=== PATIENT | male | born 1960 | race Caucasian/White ===

== ENCOUNTER 2021-10-16 10:31 | Outpatient (REF) | payer OTHER, SELFPAY ==
--- NOTE | ~2021-10-16 | XR_ITS ---
EXAMINATION: XR FOOT, BILATERAL CLINICAL INFORMATION: Left great toe pain. COMPARISON: None. TECHNIQUE: 3 views of the right foot and 3 views of the left foot. FINDINGS: 3 views of the right foot demonstrate spurring at the insertion of the plantar aponeuroses in the Achilles. Mild degeneration at the 1st MTP joint. There is no evidence for an acute fracture or dislocation. Alignment is felt to be within normal limits. 3 views of the left foot show more moderate degenerative change involving the 1st MTP joint. There is also spurring at the insertion of the Achilles and plantar aponeuroses in the posterior calcaneus. Alignment is felt to be within normal limits. No acute bony erosion. XR/XR foot RT min 3V IMPRESSION: Degenerative changes as described.
--- NOTE | ~2021-10-16 | XR_ITS ---
EXAMINATION: XR FOOT, BILATERAL CLINICAL INFORMATION: Left great toe pain. COMPARISON: None. TECHNIQUE: 3 views of the right foot and 3 views of the left foot. FINDINGS: 3 views of the right foot demonstrate spurring at the insertion of the plantar aponeuroses in the Achilles. Mild degeneration at the 1st MTP joint. There is no evidence for an acute fracture or dislocation. Alignment is felt to be within normal limits. 3 views of the left foot show more moderate degenerative change involving the 1st MTP joint. There is also spurring at the insertion of the Achilles and plantar aponeuroses in the posterior calcaneus. Alignment is felt to be within normal limits. No acute bony erosion. XR/XR foot LT min 3V IMPRESSION: Degenerative changes as described.
[2021-10-16 11:03] LABS: MANUAL DIFF FLAG NO
[2021-10-16 11:07] LABS: Basophils Percent Auto 0.3 % (0-2); Eosinophils Percent Auto 0.5 % (0-4); Hematocrit 49.6 % (42.0-52.0); Hemoglobin 17.2 g/dl (14.0-18.0); Imm Gran Abs Auto 0.02 X10*3/uL (0.00-0.03); Imm Gran Pct Auto 0.3 % (0.0-0.4); Lymphocytes Absolute Auto 1.4 X10*3/uL (1.2-4.9); Lymphocytes Percent Auto 21.3 % (20-40); Mean Corpuscular HGB Conc 34.7 g/dl (31.0-36.0); Mean Corpuscular Hemoglobin 32.1 pg (27.0-33.0); Mean Corpuscular Volume 92.5 fL (80.0-98.0); Monocytes Absolute Auto 0.6 X10*3/uL (0.1-1.2); Neutrophils Absolute Auto 4.4 x10*3/uL (2.0-8.3); Neutrophils Percent Auto 68.6 % (45-73); Platelet Count 296 X10*3/uL (160-400); Red Blood Count 5.36 X10*6/uL (4.60-5.80); Red Cell Distribution Width 12.2 % (11.0-16.0); White Blood Count 6.4 X10*3/uL (4.8-10.8)
[2021-10-16 11:56] LABS: Alanine Aminotransferase 53 U/L (0-40); Albumin Level 4.4 g/dL (3.5-5.0); Alkaline Phosphatase 84 U/L (39-117); Anion Gap 13 (12-20); Aspartate Amino Transferase 38 U/L (5-37); Bilirubin Total 0.8 mg/dL (0.0-1.0); Blood Urea Nitrogen 20 mg/dL (9-16); Calcium 9.9 mg/dL (8.4-10.2); Carbon Dioxide 25 mmol/L (22-29); Chloride 108 mmol/L (96-108); Cholesterol 129 mg/dL; Estimated Glomerular Filt Rate > 60; Glucose Fasting 102 mg/dL (60-99); HDL Cholesterol 44 mg/dL; LDL Cholesterol Calculated 75 mg/dl; Potassium 4.8 mmol/L (3.3-5.1); Sodium 141 mmol/L (135-145); Total Protein 7.3 g/dL (6.5-8.0); Triglycerides 54 mg/dL
[2021-10-16 16:12] LABS: Appearance Urine CLEAR; Color Urine YELLOW; Glucose Urine UA 100 MG/DL (NEG); Leukocyte Esterase Urine NEG (NEG); Nitrite Urine NEG (NEG); PH 5.5 (5.0-8.0); Specific Gravity - Urine >= 1.030 (1.005-1.025); Urine Blood TRACE (NEG); Urine Ketones NEG (NEG); Urine Protein NEG (NEG-TRACE)
[2021-10-16 16:23] LABS: RBC Urine 0 /HPF (0); WBC Urine 0 /HPF (0-4)
== END 2021-10-16 10:32 | disposition home or self-care (01) ==
LOC: HO.XRAY 10:31
PROVIDERS: PCP Internal Medicine; Visit Provider Internal Medicine
DX: Z00.00 Encounter for general adult medical examination without abnormal findings (principal); Z12.5 Encounter for screening for malignant neoplasm of prostate; M79.675 Pain in left toe(s); M79.671 Pain in right foot
CPT/HCPCS: 36415; 73630; 80053; 80061; 81001; 84153; 85025

== ENCOUNTER → 2021-10-30 13:54 | Outpatient (BNVA) | payer SELFPAY | PROVIDERS: PCP Internal Medicine; Visit Provider Internal Medicine | DX: Z02.79 Encounter for issue of other medical certificate (principal) ==

== ENCOUNTER 2022-06-29 17:53 | Outpatient (REF) | payer OTHER, SELFPAY ==
--- NOTE | ~2022-06-29 | MR_ITS ---
EXAMINATION: MR KNEE WITHOUT CONTRAST, LEFT CLINICAL INFORMATION: Injury, pain COMPARISON: None TECHNIQUE: MRI of the knee without contrast was performed using routine sequences on a high-field scanner. FINDINGS: MENISCI: Medial Meniscus: Degeneration and undersurface tear in the posterior horn. Small caliber of the body, with degeneration and tibial surface tearing. Lateral Meniscus: Intact LIGAMENTS: Cruciate: Intact Collateral: Intact EXTENSOR MECHANISM: Intact ARTICULAR CARTILAGE/BONE: Patellofemoral Compartment: Focus of cartilage fissuring in the median ridge. Cartilage thinning and fissuring in the medial aspect of the trochlea, subchondral edema. Cartilage heterogeneity in the central trochlear. Medial Compartment: Cartilage thinning in the medial aspect of the compartment. Subchondral edema in the medial aspect of the tibia. Lateral Compartment: No significant cartilage loss. JOINT FLUID AND BURSAE: Small effusion. Mild proximal gastrocnemius tendinosis. Popliteus muscle and tendon are intact. MR/MR knee LT wo con IMPRESSION: 1. Tear of the posterior horn and body of the medial meniscus. 2. Mild patellofemoral and medial compartment arthritis. 3. Small effusion. 4. Mild proximal gastrocnemius tendinosis.
== END 2022-06-29 17:54 | disposition home or self-care (01) ==
LOC: HO.MRI 17:53
PROVIDERS: Visit Provider Internal Medicine
DX: M25.562 Pain in left knee (principal)
CPT/HCPCS: 73721

== ENCOUNTER 2022-08-10 | Outpatient (REF) | payer OTHER, SELFPAY ==
--- NOTE | ~2022-08-10 | XR_ITS ---
EXAMINATION: XR KNEES, STANDING AP XR KNEE, LEFT CLINICAL INFORMATION: Knee pain. COMPARISON: MRI left knee 06/29/2022 TECHNIQUE: Standing AP view of both knees is performed. Lateral and axial patella views of the left knee are also performed. FINDINGS: Right: Normal bony mineralization. Borderline narrowing medial compartment. No erosive change or subchondral sclerosis or visible chondrocalcinosis. Left: Normal bony mineralization. There is borderline narrowing medial compartment. No subchondral sclerosis, erosive change, or chondrocalcinosis. No definite effusion. Hoffa's fat pad appears normal. Axial view patella shows no lateralization or tilting. XR/XR knee standing BI IMPRESSION: Right: -Borderline narrowing medial compartment. Left: -Borderline narrowing medial compartment. -No definite effusion. -No lateralization or tilting patella.
--- NOTE | ~2022-08-10 | XR_ITS ---
EXAMINATION: XR KNEES, STANDING AP XR KNEE, LEFT CLINICAL INFORMATION: Knee pain. COMPARISON: MRI left knee 06/29/2022 TECHNIQUE: Standing AP view of both knees is performed. Lateral and axial patella views of the left knee are also performed. FINDINGS: Right: Normal bony mineralization. Borderline narrowing medial compartment. No erosive change or subchondral sclerosis or visible chondrocalcinosis. Left: Normal bony mineralization. There is borderline narrowing medial compartment. No subchondral sclerosis, erosive change, or chondrocalcinosis. No definite effusion. Hoffa's fat pad appears normal. Axial view patella shows no lateralization or tilting. XR/XR knee LT 2V IMPRESSION: Right: -Borderline narrowing medial compartment. Left: -Borderline narrowing medial compartment. -No definite effusion. -No lateralization or tilting patella.
== END 2022-08-10 00:01 ==
LOC: HO.HOSX
PROVIDERS: Visit Provider Physician Assistant
DX: M25.562 Pain in left knee (principal); M25.561 Pain in right knee
CPT/HCPCS: 73560; 73565

== ENCOUNTER 2022-08-10 16:48 | Outpatient (REF) | payer OTHER, SELFPAY ==
--- NOTE | ~2022-08-10 | XR_ITS ---
EXAMINATION: XR CHEST CLINICAL INFORMATION: Cough. COMPARISON: None TECHNIQUE: 2 views of the chest were obtained. FINDINGS: No significant abnormality is noted involving the heart, lungs, mediastinum, bony thorax or soft tissues. XR/XR chest 2V IMPRESSION: Unremarkable chest examination.
== END 2022-08-10 16:49 | disposition home or self-care (01) ==
LOC: HO.XRAY 16:48
PROVIDERS: PCP Internal Medicine; Visit Provider Internal Medicine
DX: R06.02 Shortness of breath (principal); R05.9 Cough, unspecified
CPT/HCPCS: 71046

== ENCOUNTER → 2022-10-21 14:53 | Outpatient (BNVA) | payer SELFPAY | PROVIDERS: PCP Internal Medicine; Visit Provider Physician Assistant Medical | DX: Z02.79 Encounter for issue of other medical certificate (principal) ==

== ENCOUNTER → 2023-04-26 07:51 | Outpatient (REF) | payer OTHER, SELFPAY ==
--- NOTE | 2023-04-26 07:55 | CA_ITS ---
Acquisition Time: 2023-04-26 08:13:11 Total Exercise Time: 00:10:00 Test Indications: R06.09 WARNER Medications: Protocol: DMITRY Max HR: 134 BPM 85% of Pred: 157 BPM Max BP: 148/082 mmHG Max Work Load: 11.7 METS PT EXERCISED ON STD DMITRY PROTOCOL FOR 10 MIN INTO STAGE 4. NO CP OR SOB. OCC PAC'S. NO ISCHEMIC CHANGES. NL BP RESPONSE. CLINICALLY AND ELEC NEG. Referred By: Kristian Oliveira Overread By: BLAISE OLIVEIRA MD
== END ==
LOC: HO.CARD 07:51
PROVIDERS: PCP Internal Medicine; Visit Provider Internal Medicine
DX: R06.09 Other forms of dyspnea (principal)
CPT/HCPCS: 93017

== ENCOUNTER 2023-05-02 21:12 | Emergency (ER) | payer OTHER, SELFPAY ==
--- NOTE | ~2023-05-02 | XR_ITS ---
EXAMINATION: XR CERVICAL SPINE CLINICAL INFORMATION: Painful COMPARISON: None available. TECHNIQUE: 4 views of the cervical spine were obtained. FINDINGS: There is grade 1 anterolisthesis of C4 on C5 which is suspected to be chronic/degenerative in nature as there is multilevel facet arthropathy. Vertebral body heights are maintained. There is disc space narrowing and endplate osteophyte formation of the lower cervical spine. No acute fracture is seen. No significant prevertebral soft tissue swelling. XR/XR cervical spine 3V IMPRESSION: No acute findings identified. Degenerative changes as noted above. Grade 1 anterolisthesis of C4 on C5 suspected to be chronic/degenerative in nature.
--- NOTE | ~2023-05-02 | XR_ITS ---
EXAMINATION: XR SHOULDER, RIGHT CLINICAL INFORMATION: Narayant, jonathan fracture COMPARISON: None available. TECHNIQUE: Four views of the right shoulder. FINDINGS: Glenohumeral alignment is anatomic, with mild to moderate degenerative change noted. No acute fracture is seen. The acromioclavicular joint is intact with moderate degenerative change. XR/XR shoulder RT min 2V IMPRESSION: No acute findings identified. Degenerative changes of the acromioclavicular and glenohumeral joints.
--- NOTE | ~2023-05-02 | XR_ITS ---
EXAMINATION: XR CHEST CLINICAL INFORMATION: Question rib fracture, painful COMPARISON: 08/10/2022 TECHNIQUE: 2 views of the chest were obtained. FINDINGS: The lungs are clear with no focal consolidation. No evidence of pneumothorax, pulmonary edema, or pleural effusions. The cardiomediastinal silhouette is unremarkable. No acute osseous findings. XR/XR chest 2V IMPRESSION: No acute cardiopulmonary findings.
[2023-05-02 21:43] VITALS: BP 144/90; PULSE 66; RESP 18; TEMP 37.2; O2SAT 96; BMI 26.7
--- NOTE | 2023-05-03 01:17 | ED.EXTPRO ---
HPI - Extremity Problem General Chief complaint: Extremity Injury, Upper Stated complaint: Fall Body/neck pain Time Seen by Provider: 05/02/23 23:43 Source: patient Mode of arrival: ambulatory Limitations: no limitations History of Present Illness HPI Narrative: Patient is a 62-year-old male presents emergency department for evaluation after a fall with injury. States he was running with his grandchildren when he tripped resulting in a fall landing on his right side. Denies any head strike or loss of consciousness. When he fell he landed on the right shoulder and the ribs both of which are particularly painful. Reports reproducible chest pain with deep inspiration. Denies any numbness or tingling to the extremities. Denies headache, dizziness, lightheadedness, neck pain, shortness of breath, difficulty breathing, nausea, vomiting. Related Data Home Medications Medication Instructions Recorded Confirmed lisinopril 5 mg tablet 5 mg PO DAILY 08/10/22 Previous Rx's Medication Instructions Recorded cyclobenzaprine 10 mg tablet 10 mg PO TID PRN muscle spasm #14 05/03/23 tabs Allergies Allergy/AdvReac Type Severity Reaction Status Date / Time penicillamine Allergy Unknown pt unsure, Verified 08/09/19 00:00 childhood Penicillins [PCN] AdvReac Unknown UNKNOWN Unverified 05/30/20 14:42 Review of Systems Review of Systems: Yes all other systems are reviewed and are negative PMFSH Past Medical History Attestation statement: The following information was validated with the patient. 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 No acute distress.?Normal affect. Eyes: Pupils equal, round and reactive to light.? ENT: Pharynx normal.?? Neck: Normal inspection.? Neck supple.?? No midline cervical spine tenderness, step-offs, deformities. Tenderness upon palpation of the cervical paraspinal muscles. CVS: Heart sounds normal. Normal heart rate and rhythm.? Pulses normal.?? Respiratory: No respiratory distress.? Lung sounds clear to auscultation bilaterally?? Tenderness upon palpation of the right lateral chest wall, no palpable deformity. Abdomen: Soft and non-tender. Normoactive bowel sounds. Skin: Skin warm and dry.? Normal skin color.? ? Extremities: decreased AROM to the right shoulder, particularly with abduction, and overhead extension. No palpable deformity. Diffuse tenderness upon palpation. Neuro: Moves all extremities spontaneously. Sensation intact bilaterally. CN II-XII intact. No focal neuro deficits. Ambulates with normal steady gait. Medications Administered Discontinued Medications Generic Name Dose Route Start Last Admin Trade Name Freq PRN Reason Stop Dose Admin Cyclobenzaprine HCl 10 mg 05/03/23 01:22 05/03/23 01:46 Cyclobenzaprine Hcl 10 Mg Tablet PO 05/03/23 01:23 10 mg ONCE ONE Administration Medical Decision Making Medical Decision Making [facility] Narrative: patient is a 62-year-old male presents emergency department for evaluation of traumatic right shoulder neck and rib pain as per HPI. At the time my examination he is overall well-appearing. He is in no apparent respiratory distress, speaking clear full sentences, no hypoxia or tachypnea. He does have of tenderness along the right lateral chest wall, no notable deformities. Reviewed XR imaging which reveals no acute fracture, no pneumothorax. Discussed with patient consideration of repeat imaging with primary care provider should pain persist. We reviewed the use of incentive spirometer given rib injury, at this time pain likely secondary to a contusion. XR imaging of the right shoulder is without any acute fracture dislocation, he does have diffuse tenderness in a decreased AROM, consistent with sprain at this time. No midline cervical spine tenderness, step-offs, deformities, no evidence of acute fracture on x-ray, there is however degenerative changes that are noted. Pain is mostly with tenderness upon palpation of the paraspinal muscles, consistent with a muscular strain, for which he received cyclobenzaprine with good relief. He has no focal neurological deficits upon examination, low suspicion for ICH/ SAH. Reviewed worrisome signs and symptoms that would warrant re-evaluation in the emergency department. All questions were answered. Stable for discharge home and outpatient follow-up with his primary care provider. Differential Diagnosis Differential Diagnoses: The differential diagnosis associated with the presentation includes ( as noted above) Radiology Impression Discussion of test interpretation with radiology: I have reviewed the radiologist's reading. Radiologist Impression: XR/XR cervical spine 3V IMPRESSION: No acute findings identified. Degenerative changes as noted above. Grade 1 anterolisthesis of C4 on C5 suspected to be chronic/degenerative in nature. XR/XR chest 2V IMPRESSION: No acute cardiopulmonary findings. XR/XR shoulder RT min 2V IMPRESSION: No acute findings identified. Degenerative changes of the acromioclavicular and glenohumeral joints. Independent Historian Clinical information obtained from an independent historian. History obtained from or confirmed by: Spouse ( present at bedside who confirms history) Prescription Management I considered prescription management with: Pain Medication Discharge Plan Discharge Clinical Impression: Cervical muscle strain, Sprain of right shoulder, Contusion of rib on right side Patient Disposition: Home, Self-Care Instructions: Cervical Strain (ED), Shoulder Sprain (ED), Rib Contusion (ED) Additional Instructions: please be sure to rest over the next few days. Engage in gentle stretching exercises. Use incentive spirometer as instructed. You can take ibuprofen 200 mg, 3 tablets (600mg) every 6-8 hours as needed for pain, in addition to Tylenol 500 mg, 2 tablets (1,000mg) every 4-6 hours as needed for pain, but not to exceed 3 doses daily (3,000mg).? Have sent a prescription for cyclobenzaprine / Flexeril to your pharmacy. This is a muscle relaxer, may make you drowsy. Should not drive, drink alcohol, or work while taking this medication. Please follow-up with your primary care provider as needed for any persistent symptoms. You may return back to emergency department with any new or worsening symptoms or concerns. Prescriptions: New cyclobenzaprine 10 mg tablet 10 mg PO TID PRN (Reason: muscle spasm) Qty: 14 0RF No Action lisinopril 5 mg tablet 5 mg PO DAILY Referrals: Kristian Andrade MD [Primary Care Provider] - Discharge Date/Time: 05/03/23 01:55
[2023-05-03 01:33] VITALS: BP 173/95; PULSE 51; RESP 18; TEMP 36.5; O2SAT 97
[2023-05-03] MEDS: Cyclobenzaprine HCl 10 MG TABLET PO (01:46)
--- NOTE | 2023-05-03 01:52 | PC.NURSE ---
pt assessed at d/c, medicated with prior to d/c, verbalized instructions given the use of the incentive spirometer
== END 2023-05-03 01:55 | disposition home or self-care (01) ==
LOC: HO.ED 23:46
PROVIDERS: Emergency Provider Internal Medicine; PCP Internal Medicine
DX: S13.4XXA Sprain of ligaments of cervical spine, initial encounter (principal); S43.401A Unspecified sprain of right shoulder joint, initial encounter; R07.89 Other chest pain; M54.2 Cervicalgia; W01.10XA Fall on same level from slipping, tripping and stumbling with subsequent striking against unspecified object, initial encounter; Y93.9 Activity, unspecified; Y92.9 Unspecified place or not applicable; Y99.9 Unspecified external cause status
CPT/HCPCS: 71046; 72040; 73030; 99284

== ENCOUNTER 2023-05-11 16:09 | Outpatient (REF) | payer OTHER, SELFPAY ==
--- NOTE | ~2023-05-11 | XR_ITS ---
EXAMINATION: XR RIBS, RIGHT CLINICAL INFORMATION: Status post fall, rib pain. COMPARISON: Chest radiograph 05/02/2023. TECHNIQUE: 3 views of the right ribs were obtained. FINDINGS: Lungs are clear. No consolidation, pneumothorax, or pleural effusion. The cardiomediastinal silhouette and pulmonary vasculature are normal. Osseous structures are unremarkable. Ribs are intact. No fractures are identified. XR/XR ribs RT min 3V w CXR1V IMPRESSION: No acute cardiopulmonary findings. No displaced rib fractures.
== END 2023-05-11 16:10 | disposition home or self-care (01) ==
LOC: HO.XRAY 16:09
PROVIDERS: PCP Internal Medicine; Visit Provider Internal Medicine
DX: R07.81 Pleurodynia (principal); Z91.81 History of falling
CPT/HCPCS: 71101

== ENCOUNTER → 2023-10-19 14:40 | Outpatient (BNVA) | payer SELFPAY | PROVIDERS: PCP Internal Medicine; Visit Provider Physician Assistant Medical | DX: Z02.79 Encounter for issue of other medical certificate (principal) ==

== ENCOUNTER 2024-07-31 13:29 | Outpatient (REF) | payer OTHER, SELFPAY ==
--- NOTE | ~2024-07-31 | XR_ITS ---
EXAMINATION: XR RIGHT SHOULDER CLINICAL INFORMATION: Pain in unspecified shoulder M25.519. COMPARISON: XR Right shoulder 05/02/2023 TECHNIQUE: 3 views of the right shoulder FINDINGS: Mild to moderate osteoarthritis of the acromioclavicular joint unchanged. Mild osteoarthritis of the glenohumeral joint unchanged. Surrounding bone and soft tissues unremarkable. 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 Electronically signed by: Mark Aguilar MD 09/26/2024 09:47 AM [facility]
== END 2024-07-31 13:30 | disposition home or self-care (01) ==
LOC: HO.HOSX 13:29
PROVIDERS: PCP Internal Medicine; Visit Provider Physician Assistant
DX: S46.091A Other injury of muscle(s) and tendon(s) of the rotator cuff of right shoulder, initial encounter (principal)
CPT/HCPCS: 73030; 99212

== ENCOUNTER 2024-07-31 13:29 | Outpatient (AMB) | payer OTHER, SELFPAY ==
--- NOTE | 2024-07-31 13:31 | MHC.OFFVIS ---
Intake Visit Reasons: New Prob- right shoulder pain Intake Note: Randell is a 63 year old right hand dominant male who presents today for a evaluation of his right shoulder pain, 06/01/24 and 07/12/24. Patient reports he was reaching up for a barrel and her elsie a pop in his shoulder. He mentions that he is feeling some soreness and his ROM is limited. Patient states that his pain is worse when he is over doing it at work. Allergies penicillamine Allergy (Unknown, Verified 07/31/24 13:57) pt unsure, childhood Penicillins [PCN] Adverse Reaction (Unknown, Verified 07/31/24 13:57) UNKNOWN HPI HPI New Prob- right shoulder pain: Details: 63-year-old male who presents in the office today for an evaluation of right shoulder pain. I last saw the patient in the office for left knee pain on 08/10/22. While in the office today, the patient reports he was reaching up for a barrel and he experienced a popping sensation in his right shoulder. He mentions experiencing mild soreness and limited ROM. He states aggravating pain when he overuses his right shoulder at work. 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 Abduction to 90 degrees. External rotation to neutral. Able to reach the back pocket. Pain with cross body reach. 3/5 strength with an empty can. Negative drop arm. NVI. Assessment & Plan Assessment & Plan (1) Other injury of muscle(s) and tendon(s) of the rotator cuff of right shoulder, initial encounter: Code(s): S46.091A - Other injury of muscle(s) and tendon(s) of the rotator cuff of right shoulder, initial encounter Category: Medical Plan Mr. Clemens is a 63-year-old male who presents in the office today for an evaluation of right shoulder pain. I last saw the patient in the office for left knee pain on 08/10/22. While in the office today, the patient reports he was reaching up for a barrel and he experienced a popping sensation in his right shoulder. He mentions experiencing mild soreness and limited ROM. He states aggravating pain when he overuses his right shoulder at work. We discussed the role of cortisone injection, physical therapy and MRI imaging. The patient mentions he has had a prior rotator cuff repair on the left shoulder and feels as though his symptoms may be similar. He is reluctant to move forward with a cortisone injection at this time. He would like to further proceed with MRI imaging of the right shoulder in which I am in agreement with today. Therefore, I have placed an order for an MRI of the right shoulder today to further evaluate the integrity of the right shoulder. I have also placed a referral to physical therapy to work on range of motion and strengthening. Follow-up will be after the MRI is obtained, sooner if needed. X-rays of the right shoulder, which were obtained while in the office today and were reviewed by me, Cleo Cook PA-C, revealed: Negative for any acute fracture of dislocation. Orders: Orders XR shoulder RT min 2V Today M25.519 - Pain in unspecified shoulder PT Evaluation and Treatment Today S46.091A - Other injury of muscle(s) and tendon(s) of the rotator cuff of right shoulder, initial encounter Patient Instructions: Scribed by Chana Laird, medical lab specialist, for Cleo Cook PA-C on 07/31/2024 at 2:20 pm EST. Coding Level of Care Code Est Pt Level 4 (56180) Diagnoses Other injury of muscle(s) and tendon(s) of the rotator cuff of right shoulder, initial encounter S46.091A
== END 2024-07-31 14:29 | disposition home or self-care (01) ==
PROVIDERS: PCP Internal Medicine; Visit Provider Physician Assistant
DX: S46.091A Other injury of muscle(s) and tendon(s) of the rotator cuff of right shoulder, initial encounter (principal); Z04.2 Encounter for examination and observation following work accident
CPT/HCPCS: 99214

== ENCOUNTER 2024-08-09 06:25 | Outpatient (REF) | payer OTHER, SELFPAY ==
[2024-08-09 06:51] LABS: MANUAL DIFF FLAG NO
[2024-08-09 07:26] LABS: Appearance Urine Clear; Color Urine Yellow; Glucose Urine UA Negative (Negative); Leukocyte Esterase Urine Negative (Negative); Nitrite Urine Negative (Negative); PH 5.5 (5.0-9.0); Specific Gravity - Urine 1.025 (1.005-1.025); UMIC TRIGGER UA YES; Urine Blood Trace (Negative); Urine Ketones Negative (Negative); Urine Protein Negative (Neg-Trace)
[2024-08-09 07:26] LABS: Basophils Percent Auto 0.3 % (0-2); Eosinophils Absolute Auto 0.1 X10*3/uL (0.0-0.4); Eosinophils Percent Auto 1.3 % (0-4); Hematocrit 48.5 % (42.0-52.0); Hemoglobin 17.3 g/dl (14.0-18.0); Imm Gran Abs Auto 0.02 X10*3/uL (0.00-0.03); Imm Gran Pct Auto 0.3 % (0.0-0.4); Lymphocytes Absolute Auto 1.3 X10*3/uL (1.2-4.9); Lymphocytes Percent Auto 20.8 % (20-40); Mean Corpuscular HGB Conc 35.7 g/dl (31.0-36.0); Mean Corpuscular Hemoglobin 32.1 pg (27.0-33.0); Mean Platelet Volume 9.7 fL (9.4-12.4); Monocytes Absolute Auto 0.5 X10*3/uL (0.1-1.2); Monocytes Percent Auto 8.6 % (2-11); Neutrophils Absolute Auto 4.1 x10*3/uL (2.0-8.3); Neutrophils Percent Auto 68.7 % (45-73); Platelet Count 296 X10*3/uL (160-400); Red Blood Count 5.39 X10*6/uL (4.60-5.80); Red Cell Distribution Width 12.5 % (11.0-16.0)
[2024-08-09 07:32] LABS: Bacteria Urine None Seen (None Seen); Hyaline Casts Urine 0-2 /LPF (0-2); RBC Urine 0-2 /HPF (0-2); Squamous Epithelial Cell Urine 0-2 /HPF (0-2); WBC Urine 0-5 /HPF (0-5)
[2024-08-09 08:05] LABS: Alanine Aminotransferase 48 U/L (0-40); Albumin Level 4.2 g/dL (3.5-5.0); Alkaline Phosphatase 79 U/L (39-117); Anion Gap 12 (12-20); Aspartate Amino Transferase 36 U/L (5-37); Bilirubin Total 0.6 mg/dL (0.0-1.0); Blood Urea Nitrogen 21 mg/dL (9-16); Carbon Dioxide 23 mmol/L (22-29); Chloride 110 mmol/L (96-108); Cholesterol 113 mg/dL (<200); Estimated Glomerular Filt Rate > 60; Glucose Fasting 120 mg/dL (60-99); HDL Cholesterol 37 mg/dL (>40); LDL Cholesterol Calculated 61 mg/dL (<100); Potassium 3.6 mmol/L (3.3-5.1); Sodium 141 mmol/L (135-145); Total Protein 6.9 g/dL (6.5-8.0); Triglycerides 75 mg/dL (<150)
[2024-08-09 08:23] LABS: Prostate Specific Antigen 0.32 ng/mL (<0.05-4.0)
[2024-08-16 16:34] LABS: Testosterone, Free 59.6 pg/mL (35.0-155.0); Testosterone, Total 828 ng/dL (250-1100)
== END 2024-08-09 06:26 | disposition home or self-care (01) ==
LOC: HO.LAB 06:25
PROVIDERS: PCP Internal Medicine; Visit Provider Internal Medicine
DX: I10 Essential (primary) hypertension (principal); Z12.5 Encounter for screening for malignant neoplasm of prostate; N40.0 Benign prostatic hyperplasia without lower urinary tract symptoms; J44.9 Chronic obstructive pulmonary disease, unspecified; K57.92 Diverticulitis of intestine, part unspecified, without perforation or abscess without bleeding
CPT/HCPCS: 36415; 80053; 80061; 81001; 84153; 84402; 84403; 85025

== ENCOUNTER 2024-08-18 17:41 | Outpatient (REF) | payer OTHER, SELFPAY ==
--- NOTE | ~2024-08-18 | MR_ITS ---
EXAMINATION: MR SHOULDER WITHOUT CONTRAST, RIGHT CLINICAL INFORMATION: Constant pain in the right shoulder and right arm after injury. COMPARISON: None available. TECHNIQUE: MRI of the shoulder without contrast was performed on a high-field scanner. FINDINGS: ROTATOR CUFF: An insertional, full-thickness, full-width tear of the supraspinatus tendon and infraspinatus tendon measures 3.6 cm AP with retraction of torn fibers by 2.7 cm to level of the humeral head apex. There is moderate subscapularis tendinosis with undersurface fraying of the more cephalad fibers an underlying subcortical edema signal at the lesser tuberosity. No significant muscle atrophy or fatty replacement. BICEPS: The tendon of the long head is torn and distally retracted. CORACOACROMIAL ARCH: The undersurface of the acromion is curved with no subacromial spur. 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 LABRUM/CAPSULE: A tear of the glenoid labrum propagates from the superior 12 o'clock position posteriorly to the posterior labral equator at the 9 o'clock position. There is a tear of the anteroinferior labrum between the anterior 3 o'clock position and inferior 6 o'clock position. Joint capsule is unremarkable. GLENOHUMERAL JOINT/MARROW: Small marginal osteophytes are evident at the glenoid and humeral head. Partial-thickness cartilage loss is evident at the humeral head anterosuperiorly. Subarticular marrow edema is noted at the lesser tuberosity. No fracture or malalignment. Small glenohumeral joint effusion. Fluid in the subacromial subdeltoid bursa likely arises from the glenohumeral joint and extends through the defect in the rotator cuff. MR/MR shoulder RT wo con IMPRESSION: 1. A 3.6 cm (AP) full-thickness, full-width tear of the supraspinatus and infraspinatus tendons with 2.7 cm of retraction. No muscle atrophy. 2. Moderate subscapularis tendinosis with undersurface fraying. 3. Complete tear of the biceps tendon with distal retraction. 4. 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 5. Mild glenohumeral osteoarthritis with tears of the anteroinferior and posterosuperior glenoid labrum. Electronically signed by: Mack Caraballo MD 08/27/2024 03:30 PM [facility] MERINO
--- OUTSIDE RECORDS SUMMARY | 2024-08-23 11:25 | XMS_ITS ---
Author Organization [facility] Address [address] [place] [address] Care Team Providers Care Motor Vehicle License Clerk Name Role Phone Kristian Andrade MD Primary Care Provider Jacob Page [phone] REASON FOR VISIT sd cx Encounters Encounter Location Date Provider Diagnosis [address] [address] 06/07/2024 Jacob Fermin Plan Of Treatment No Information Progress Notes * Margarette CLEMENSOB:1960 ( 63 yo M)Acc No.[id number]:06/07/2024 Patient:?Randell Clemens :1960???Age:63 Y???Sex:Male Address:[address] [place] [address], [address] * true * Date:? Generated for Javan day/Madisyn/eTransmitting on:?08/23/2024 11:25 AM EST
--- OUTSIDE RECORDS SUMMARY | 2024-08-23 11:25 | XMS_ITS ---
Author Organization [facility] [place] Address [address] [place] [address] Care Team Providers Care Job Printer Apprentice Name Role Phone Kristian Andrade MD Primary Care Provider UnavailJacob Gu Unavailable [phone] Allergies Allergen (clinical drug ingredient) Drug/Non Drug Allergy documented on EMR Reaction Allergy Type Onset Date Status Penicillin Unknown Drug Allergy Active REASON FOR VISIT Heel pain Medications Medication SIG (Take, Route, Fr equency, Duration) Notes Start Date End Date Status Lisinopril 5 MG 1 tablet Orally Once a day for 30 day(s) Active Feldene 20 MG 1 capsule with food Orally Once a day for 30 day(s) 02/27/2022 Not-Taking Social History Tobacco Use: Social History Observation Description Date Details (start date - stop date) Former Smoker NA - NA Tobacco Use/Smoking Question Answer Notes Are you a: former smoker Additional Findings: Tobacco Non-User Current no n-smoker Alcohol Screen Question Answer Notes Did you have a drink containing alcohol in the p ast year? No Points 0 Interpretation Negative Tobacco use other than smoking: Question Answer Notes Are you an other tobacco user? No Problems Problem Type SNOMED Code ICD Code Onset Dates Problem Status W/U Status Risk Notes Problem [id number] Plantar fasciitis of left foot (M72.2) Active confirmed Vital Signs Height 5ft 6.5 in in 05/03/2024 Weight 170 lbs 05/03/2024 BMI 27.02 kg/m2 05/03/2024 Encounters Encounter Location Date [facility] [address] [facility] [address] [place] [address] 05/03/2024 Jacob Fermin Plantar fasciitis of left foot M72.2 Assessments Encounter Date Diagnosis (ICD Code) Assessment Notes Treatment Notes Treatment Clinical Notes Section Notes 05/03/2024 Plantar fasciitis of left foot (ICD-10 - M72.2) Plan Of Treatment Next Appt Details Follow Up: 3-4 Weeks, Reason : Progress Notes * Margarette CLEMENSOB:1960 ( 63 yo M)Acc No.[id number]:05/03/2024 Progress Notes Patient:?Randell Clemens Provider:?Jacob Fermin DPM :1960???Age:63 Y???Sex:Male Kyle e:05/03/2024 Address:[address] [place], [place] [id number] Pcp:Kristian Andrade MD Subjective: * Chief Complaints: * ???Heel pain * HPI: ???Heel pain:?Location:?Proximal plantar aspect of Heel , LEFT.?Course:?States , improved , at approximately 70 %.?Treatments:?rest/alter normal daily activity, ice, heat, stretching , medication ( Advil once in a while, topical aspercream) , pre-fabricated orthoses , change in shoes, massage , AFO-nightsplint (pt was unable to get a response from insurance regarding coverage).? * ROS:?General/Constitutional:?Nausea?denies.?Vomiting?denies.?Hunger Thirst?denies.?Loss appetite?denies.?Chills?denies.?Fatigue?denies.?Fever?denies.?Night Sweats?denies.?Unexplained weight loss?denies.?Unexplained weight gain?denies.?HEENTM:?Dentures?denies.?Dizziness?denies.?Glasses/contacts?admits.?Retinopathy?de nies.?Blurred/double vision?denies.?TMJ?denies.?Discharge/drainage?denies.?Implants?denies.?Sore throat?denies.?Dental implants?denies.?Hard of hearing ?denies.?Difficulty chewing/swallowing/speaking?denies.?Nose bleeds?denies.?Sore mouth?denies.?Respiratory:?On Oxygen?denies.?Pneumonia/pleurisy?denies.?Bronchitis?denies.?Emphysema?denies.?C oughing?denies.?Cough blood?denies.?Shortness of breath?denies.?Wheezing?denies.?Cardiovascular:?Pacemaker?denies.?MVP?denies.?WPW?denies.?CHF?denies.?Heart attack?denies.?Septal defect?denies.?Rapid beat?denies.?Chest pain ?denies.?Atrial Fib.?denies.?Murmur/Palpitations?denies.?Gastrointestinal:?Hemorrhoids?denies.?Stomach/Abdominal pain?denies.?Dark blood stool?denies.?Irritable bowel ?denies.?Constipation?denies.?Diarrhea?denies.?Hematology:?Swelling?denies.?Clots?denies.?Varicose Veins?denies.?Bruising?denies.?Bleeding problem?denies.?Genitourinary:?Blood urine?denies.?Frequent/Painfu/urination/bladder control?denies.?Kidney stones?denies.?Infection (UTI)?denies.?Nephropathy?denies.?sex trans dis (STD)?denies.?Prostate?denies.?Musculoskeletal:?Hammertoes?denies.?Bunions?denies.?Back Pain?denies.?Muscle Cramps/ Resting?denies.?Muscle cramps / walking?denies.?Generalized aches and pains?denies.?Weakness?denies.?Integ.:?Marquis?denies.?Scars?denies.?Corns/calluses?denies.?Ingrown nails?denies.?Painful nails?denies.?Open Sores?denies.?Rashes?denies.?Neurologic:?Difficulty sleeping?denies.?Brain disorder?denies.?Numbness?denies.?Balance trouble?denies.?Confusion?denies.?Fainting/blackouts?denies.?Tingling?denies.?Tr emors?denies.? * Medical History:? * Surgical History:?No Surgica l History documented. * Hospitalization/Major Diagno stic Procedure:?No Hospitalization History. * Family History:?Mother: unkn own.?Father: unknown, Cancer, diagnosed with Unspecified essential hypertension, Other malignant neoplasm of unspecified site.?Spouse: alive.? * Social History:?Tobacco Use:?Tobacco Use/Smoking?Are you a:?former smoker ?Additional Findings: Tobacco Non-User?Current non-smoker ?Tobacco use other than smoking?Are you an other tobacco user??No ???Drugs/Alcohol:?Drugs?Have you used drugs other than those for medical reasons in the past 12 months??No ?Alcohol Screen?Did you have a drink containing alcohol in the past year??No ?Points?0 ?Interpretation?Negative ???Miscellaneous:?Caffeine: yes, 1-2 cups per day. ?Exercise: yes, soccer,baseball,swimming,hiking,skiing,bike riding. ?Marital status: . 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 * Medications:?TakingLisinopri l 5 MG Tablet 1 tablet Orally Once a dayTaking Lisinopril 5 MG Tablet 1 tablet Orally Once a dayNot-Taking/PRNFeldene 20 MG Capsule 1 capsule with food Orally Once a dayMedication List reviewed and reconciled with the patientNot-Taking/PRN Feldene 20 MG Capsule 1 capsule with food Orally Once a dayMedication List reviewed and reconciled with the patient * Allergies:?Penicillinyes[All ergies Verified] Objective: * Vitals:?Ht:5ft 6.5 in, Wt:17 0, BMI:27.02, Shoe size:8, Ht-cm: 168.91 cm, Wt-k.11 kg. * Examination: ???Heel Pain: ?INSPECTION:?CONT, approximately 70% LESS, Pain on Palpation to Plantar Fascia med. and central bands, intrinsic musc., infra-calcaneal bursa, and med calc tubercle , LEFT foot.? Assessment: * Assessment: 1.?Plantar fasciitis of left foot - M72.2, Acute problem, Uncomplicated (3),Response to treatment - Improvement,Unresolved? Plan: * Treatment: * Procedure Codes:? * Preventive Medicine:? ??Counseling:?Discussion:?-13: Office or other outpatient visit for the evaluation and management of an established patient, which required a medically appropriate history and/or examination and LOW level of DECISION MAKING for: 1 STABLE ACUTE UNCOMPLICATED PROBLEM, 2 OR MORE MINOR PROBLEMS, OR 1 STABLE CHRONIC PROBLEM, THAT POSE(S) A LOW RISK FOR MORBIDITY/MORTALITY. The visit on the day of the encounter encompassed interpreting the data and educating the patient as to the nature of their condition, treatment options available according to their individual PMH, meds, allergies, and overall health/living conditions, as well as any potential risks or complications that may occur from a failure to adhere to, and participate in, the recommended course of therapy. The discussion included a complete verbal, and/or written explanation of the examination results, any x-rays taken, the proposed diagnosis, and outline of the treatment plan. A schedule for future care needs was also explained. The patient verbalized an understanding of the instructions at this time and agreed to be an active participant in their treatment. If the patient should think of any questions or concerns after the visit, I have encouraged the patient to call the office.?Heel pain:?Discussed other tx options for the patients condition, Given recent successful results to treatment, the patient wishes to continue with the present plan for their condition.?Orthotics:?Cont Prefabricated orthothes ( Comfort Plus - B ).?P.R.I.C.E.:?The patient was counseled on the cont use of P.R.I.C.E. and NSAIDS (if well tolerated) to aid in the recovery from their painful condition, Recommended Topical analgesics including Aspercream/Biofreeze/Voltaren gel as directed.?Stretching Exercises:?Cont Stretching and deep tissue massage exercises.? * Follow Up:?3-4 Weeks * Images: * Sign off status: Completed true * Provider:?Jacob Fermin DPM Date:?2023 Generated for Javan day/Madisyn/Marion on:?08/23/2024 11:25 AM EST History and Physical Notes * HPI (History of Present Illness) Category Sub-Category Detail Notes Category Not es Heel pain Location: Proximal plantar aspect of H eel , LEFT Course: States , improved , at approximately 70 % Treatments: rest/alter normal da vidal activity, ice, heat, stretching , medication ( Advil once in a while, topical aspercream) , pre-fabricated orthoses , change in shoes, massage , AFO- nightsplint (pt was unable to get a response from insurance regarding coverage) Examination Category Sub-Category Detail Notes Category Not es Heel Pain INSPECTION: CONT, approximat inna 70% LESS, Pain on Palpation to Plantar Fascia med. and central bands, intrinsic musc., infra-calcaneal bursa, and med calc tubercle , LEFT foot
--- OUTSIDE RECORDS SUMMARY | 2024-08-23 11:25 | XMS_ITS | Patient Health Record ---
[facility] [place] Address [address] [place] [address] Care Team Providers Care Pipelayer Name Role Phone Kristian Andrade MD Primary Care Provider Jacob Page Unavailable [phone] Allergies Allergen (clinical drug ingredient) Drug/Non Drug Allergy documented on EMR Reaction Allergy Type Onset Date Status Penicillin Unknown Drug Allergy Active Reason For Referral No Information Medications Medication SIG (Take, Route, Fr equency, [...] Problem Status W/U Status Risk Notes Problem [id number] Plantar fasciitis of left foot (M72.2) Active confirmed Vital Signs Height 5ft 6.5 in in 05/03/2024 Weight 170 lbs 05/03/2024 BMI 27.02 kg/m2 05/03/2024 Encounters Encounter Location Date [facility] [address] [address] 03/27/2024 Jacob Fermin Pain in left foot M79.672 ; Plantar fasciitis of left foot M72.2 ; Calcaneal spur, left foot M77.32 ; Interstitial myositis of left foot M60.172 and Bursitis of left foot M77.52 [facility] [address] [place] [address] 05/03/2024 Jacob Fermin Plantar fasciitis of left foot M72.2 [place] [address] [address] 03/27/2024 Jacob Fermin [address] [address] 06/07/2024 Jacob Fermin Assessments Encounter Date Diagnosis (ICD Code) Assessment Notes Treatment Notes Treatment Clinical Notes Section Notes 03/27/2024 Pain in left foot (ICD-10 - M79.672) 03/27/2024 Plantar fasciitis of left foot (ICD-10 - M72.2) Patient Educated with: HEEL CORD STRETCHES.pdf (HEEL CORD STRETCHES.pdf) Patient Educated with: RICE THERAPY.pdf (RICE THERAPY.pdf) 05/03/2024 Plantar fasciitis of left foot (ICD-10 - M72.2) 03/27/2024 Calcaneal spur, left foot (ICD-10 - M77.32) 03/27/2024 Interstitial myositis of left foot (ICD-10 - M60.172) 03/27/2024 Bursitis of left foot (ICD-10 - M77.52) Plan Of Treatment Pending Test Test Name Order Date X ray : Foot, left 3V 02/27/2022 X ray : Foot, left 3V 03/27/2024 X ray : Foot, right 3V 02/27/2022 Insurance Providers Payer Name Payer Address Payer Phone Subscriber Number Group Number Insured Name Patient Relationship to Insured Coverage Start Date Coverage End Date Blue Benefits [address] [address] [place] [address] [id number] Clemens Randell Self - patient is the insured Medical (General) History Medical History History ICD Code High blood pressure Surgical History Surgery Date(Month/Year)
--- OUTSIDE RECORDS SUMMARY | 2024-08-23 11:25 | XMS_ITS ---
Author Organization [facility] Address [address] [place] [address] Care Team Providers Care Leasing Coordinator Name Role Phone Kristian Andrade MD Primary Care Provider Jacob Page Unavailable [phone] Encounters Encounter Location Date Provider Diagnosis [address] [address] 06/07/2024 Jacob Fermin Plan Of Treatment No Information Progress Notes * Margarette CLEMENSOB:1960 ( 63 yo M)Acc No.[id number]:06/07/2024 Progress Note Patient:Randell TAYLOR Provider:?Jacob Fermin DPM :1960???Age:63 Y???Sex:Male Kyle e:06/07/2024 Address:[address] [place], [place] [phone] Pcp:Kristian Andrade MD Subjective: * Chief Complaints: * ??? * Medical History:? Objective: * Vitals:? Assessment: Plan: * Treatment: * Images: * The named appointment provid er may or may not be the originator of this progress note, and it is not deemed complete until electronically signed by the appointment provider. Sign off status: Pending * Provider:Cruzito Fermin DPM Date:?2023 Generated for Libbyi shay/Fakelly/eTransmitting on:?08/23/2024 11:25 AM EST
== END 2024-08-18 17:42 | disposition home or self-care (01) ==
LOC: HO.MRI 17:41
PROVIDERS: PCP Internal Medicine; Visit Provider Physician Assistant
DX: S46.091A Other injury of muscle(s) and tendon(s) of the rotator cuff of right shoulder, initial encounter (principal)
CPT/HCPCS: 73221

== ENCOUNTER → 2024-10-17 14:30 | Outpatient (BNVA) | payer SELFPAY | PROVIDERS: PCP Internal Medicine; Visit Provider Physician Assistant Medical | DX: Z02.79 Encounter for issue of other medical certificate (principal) ==

== ENCOUNTER 2024-10-26 13:45 | Outpatient (AMB) | payer OTHER, SELFPAY ==
--- OUTSIDE RECORDS SUMMARY | 2024-10-26 13:50 | XMS_ITS ---
Author Organization [facility] Address [address] [place] [address] Care Team Providers Care Packer Dried Beef Name Role Phone Kristian Andrade MD Primary Care Provider Jacob Page Unavailable [phone] Encounters Encounter Location Date Provider Diagnosis [address] [address] 06/07/2024 Jacob Fermin Plan Of Treatment No Information Progress Notes * Margarette CLEMENSOB:1960 ( 63 yo M)Acc No.[id number]:06/07/2024 Progress Note Patient:Randell TAYLOR Provider:?Jacob Fermin DPM :1960???Age:63 Y???Sex:Male Kyle e:06/07/2024 Address:[address] [place], [place] [phone] Pcp:Kristian Andrade MD Subjective: * Chief Complaints: * ??? * Medical History:? Objective: * Vitals:? Assessment: Plan: * Treatment: * Images: * The named appointment provid er may or may not be the originator of this progress note, and it is not deemed complete until electronically signed by the appointment provider. Sign off status: Pending * Provider:Cruzito Fermin DPM Date:?2023 Generated for Libbyi shay/Madisyn/eTransmitting on:?10/26/2024 01:49 PM EST
--- OUTSIDE RECORDS SUMMARY | 2024-10-26 13:50 | XMS_ITS ---
Author Organization [facility] [place] Address [address] [place] [address] Care Team Providers Care Driver Salesman Name Role Phone Kristian Andrade MD Primary Care Provider UnavailJacob Gu Unavailable [phone] Allergies Allergen (clinical drug ingredient) Drug/Non Drug [...] Problem Status W/U Status Risk Notes Problem [id number] Plantar fasciitis of left foot (M72.2) Active confirmed Vital Signs Height 5ft 6.5 in in 05/03/2024 Weight 170 lbs 05/03/2024 BMI 27.02 kg/m2 05/03/2024 Encounters Encounter Location Date [facility] [address] [facility] [address] [place] [phone] 05/03/2024 Jacob Fermin Plantar fasciitis of left foot M72.2 Assessments Encounter Date Diagnosis (ICD Code) Assessment Notes Treatment Notes Treatment Clinical Notes Section Notes 05/03/2024 Plantar fasciitis of left foot (ICD-10 - M72.2) Plan Of Treatment Next Appt Details Follow Up: 3-4 Weeks, Reason : Progress Notes * Margarette CLEMENSOB:1960 ( 63 yo M)Acc No.[id number]:05/03/2024 Progress Notes Patient:?Randell Clemens Provider:?Jacob Fermin DPM :1960???Age:63 Y???Sex:Male Kyle e:05/03/2024 Address:[address] [place], [place] [phone] Pcp:Kristian Andrade MD Subjective: * Chief Complaints: [...] yes, soccer,baseball,swimming,hiking,skiing,bike riding. ?Marital status: . 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 * Medications:?TakingLisinopri l 5 MG Tablet 1 [...] Fermin DPM Date:?2023 Generated for Javan day/Madisyn/Marion on:?10/26/2024 01:50 PM EST History and Physical Notes * HPI [...]
--- OUTSIDE RECORDS SUMMARY | 2024-10-26 13:50 | XMS_ITS ---
Author Organization [facility] Address [address] [place] [address] Care Team Providers Care Reading Intervention Teacher Name Role Phone Kristian Andrade MD Primary Care Provider Jacob Page [phone] REASON FOR VISIT sd cx Encounters Encounter Location Date Provider Diagnosis [address] [address] 06/07/2024 Jacob Fermin Plan Of Treatment No Information Progress Notes * Margarette CLEMENSOB:1960 ( 63 yo M)Acc No.[id number]:06/07/2024 Patient:?Randell Clemens :1960???Age:63 Y???Sex:Male Address:[address] [place] [address], [address] * true * Date:? Generated for Javan dya/Madisyn/eTransmitting on:?10/26/2024 01:50 PM EST
--- OUTSIDE RECORDS SUMMARY | 2024-10-26 13:50 | XMS_ITS | Patient Health Record ---
[facility] [place] Address [address] [place] [address] Care Team Providers Care Position Classifier Name Role Phone Kristian Andrade MD Primary Care Provider Jacob Page Unavailable [phone] Allergies Allergen (clinical drug ingredient) Drug/Non Drug [...] Problem Status W/U Status Risk Notes Problem [id number] Plantar fasciitis of left foot (M72.2) Active confirmed Vital Signs Height 5ft 6.5 in in 05/03/2024 Weight 170 lbs 05/03/2024 BMI 27.02 kg/m2 05/03/2024 Encounters Encounter Location Date [facility] [address] [address] 03/27/2024 Jacob Fermin Pain in left foot M79.672 ; Plantar fasciitis of left foot M72.2 ; Calcaneal spur, left foot M77.32 ; Interstitial myositis of left foot M60.172 and Bursitis of left foot M77.52 [facility] [address] [place] [address] 05/03/2024 Jacob Fermin Plantar fasciitis of left foot M72.2 [place] [id number] [address] 03/27/2024 Jacob Fermin [address] [address] 06/07/2024 Jacob Fermin Assessments Encounter Date Diagnosis [...] Coverage End Date Blue Benefits [address] [address] [place] [address] [id number] Clemens Randell Self - patient is the insured Medical (General) History Medical History History ICD Code High blood pressure Surgical History Surgery Date(Month/Year)
--- NOTE | 2024-10-26 13:51 | A.OFFVIS_ITS ---
Intake Visit Reasons: OV- Right shoulder MRI review Intake Note: Randell is a 63 year old right hand dominant male who presents today for a right shoulder MRI review. Patient reports he was reaching up for a barrel and her elsie a pop in his shoulder. IMPRESSION: 1. A 3.6 cm (AP) full-thickness, full-width tear of the supraspinatus and infraspinatus tendons with 2.7 cm of retraction. No muscle atrophy. 2. Moderate subscapularis tendinosis with undersurface fraying. 3. Complete tear of the biceps tendon with distal retraction. 4. 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 5. Mild glenohumeral osteoarthritis with tears of the anteroinferior and posterosuperior glenoid labrum. Allergies penicillamine Allergy (Unknown, Verified 07/31/24 13:57) pt unsure, childhood Penicillins [PCN] Adverse Reaction (Unknown, Verified 07/31/24 13:57) UNKNOWN HPI HPI OV- Right shoulder MRI review: Details: Randell is a 63 year old right hand dominant male who presents today for a right shoulder MRI review. Patient reports he was reaching up for a barrel and felt a pop in his shoulder. He is managing to work. He reports that this has been present for years. He reports feeling a pop but there was difficulty with overhead work for many years. He compensates by keeping things in front of him. He states he can tolerate the discomfort unless he overdoes it and then he is sore. He had left RTC surgery decades ago and remembers it taking a long time to recover. 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 He has 4/5 strength on the right. Neg drop arm. Neg lift off. ER to 45 deg Results Reviewed Results Reviewed: I personally reviewed the MR images. IMPRESSION: 1. A 3.6 cm (AP) full-thickness, full-width tear of the supraspinatus and infraspinatus tendons with 2.7 cm of retraction. No muscle atrophy. 2. Moderate subscapularis tendinosis with undersurface fraying. 3. Complete tear of the biceps tendon with distal retraction. 4. 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 5. Mild glenohumeral osteoarthritis with tears of the anteroinferior and posterosuperior glenoid labrum. Assessment & Plan Assessment & Plan (1) Rotator cuff tear, right: Code(s): M75.101 - Unspecified rotator cuff tear or rupture of right shoulder, not specified as traumatic Category: Medical Plan: This is a 63 yo active M with a right rotator cuff tear. There may be a portion that is subacute but it appears chronic by history and MRI although there is no atrophy. Surgical intervention would keep him out of his current type of work for at least 6 months and this is something he does not want. I do not think he is a candidate for arthroplasty given his current work demands. He states he will try to work until he is 69. He is functional at the moment and I reviewed the importance of shoulder safe mechanics. If he worsens we can discuss again but, at this time, he is stable and not interested in surgical fixation. Coding Level of Care Code Est Pt Level 4 (07237) Diagnoses Rotator cuff tear, right M75.101
== END 2024-10-26 15:55 | disposition home or self-care (01) ==
PROVIDERS: PCP Internal Medicine; Visit Provider Orthopaedic Surgery
DX: M75.101 Unspecified rotator cuff tear or rupture of right shoulder, not specified as traumatic (principal); Z04.2 Encounter for examination and observation following work accident
CPT/HCPCS: 99214

== ENCOUNTER → 2024-10-26 13:45 | Outpatient (BNVA) | payer OTHER, SELFPAY | PROVIDERS: PCP Internal Medicine; Visit Provider Orthopaedic Surgery | DX: M75.101 Unspecified rotator cuff tear or rupture of right shoulder, not specified as traumatic (principal) | CPT/HCPCS: 99212 ==

== ENCOUNTER 2025-06-04 14:58 | Outpatient (REF) | payer OTHER, SELFPAY ==
[2025-06-04 15:59] LABS: MANUAL DIFF FLAG NO
[2025-06-04 16:28] LABS: Hemoglobin A1C 140.1292 umol/L
[2025-06-04 16:31] LABS: Hematocrit 47.1 % (42.0-52.0); Hemoglobin 16.6 g/dl (14.0-18.0); Imm Gran Abs Auto 0.03 X10*3/uL (0.00-0.03); Imm Gran Pct Auto 0.4 % (0.0-0.4); Lymphocytes Absolute Auto 1.7 X10*3/uL (1.2-4.9); Mean Corpuscular HGB Conc 35.2 g/dl (31.0-36.0); Mean Corpuscular Hemoglobin 32.1 pg (27.0-33.0); Mean Corpuscular Volume 91.1 fL (80.0-98.0); NRBC Abs Auto 0.000 X10*3/uL (0.0-0.012); NRBC Pct Auto 0.0 /100WBC (0.0-0.2); Platelet Count 284 X10*3/uL (160-400); Red Blood Count 5.17 X10*6/uL (4.60-5.80); White Blood Count 8.5 X10*3/uL (4.8-10.8)
[2025-06-04 17:04] LABS: Alanine Aminotransferase 57 U/L (0-40); Albumin Level 4.6 g/dL (3.5-5.0); Alkaline Phosphatase 82 U/L (39-117); Anion Gap 12 (12-20); Aspartate Amino Transferase 45 U/L (5-37); Blood Urea Nitrogen 19 mg/dL (9-16); Calcium 8.9 mg/dL (8.4-10.2); Carbon Dioxide 26 mmol/L (22-29); Chloride 108 mmol/L (96-108); Cholesterol 109 mg/dL (<200); Estimated Glomerular Filt Rate > 60; HDL Cholesterol 38 mg/dL (>40); Potassium 3.7 mmol/L (3.3-5.1); Sodium 142 mmol/L (135-145); Total Protein 7.3 g/dL (6.5-8.0); Triglycerides 80 mg/dL (<150)
[2025-06-05 13:03] LABS: Syphilis Screen Nonreactive (Nonreactive)
[2025-06-05 13:50] LABS: HBS Num1 0.00 mIU/mL (0-7.99); HBc Num1 0.07 S/CO (0.00-0.79); HBsAGNum1 0.59 S/CO (0.00-0.99); HIV Num 1 0.05 S/CO (0.00-0.99); Hepatitis A Antibody IgM 0.49 Index (0-0.79); Hepatitis B Surface Antigen Negative (Negative); ~HepC Num1 13.33 S/CO (0.00-0.79); ~Hepatitis A Antibody IgM Nonreactive (Nonreactive); ~Hepatitis B Surface Antibody NONREACTIVE (Nonreactive); ~Hepatitis C Antibody Reactive (Nonreactive)
[2025-06-11 14:59] LABS: Testosterone, Free 50.2 pg/mL (35.0-155.0)
== END 2025-06-04 14:59 | disposition home or self-care (01) ==
LOC: HO.LAB 14:58
PROVIDERS: PCP Student in an Organized Health Care Education/Training Program; Visit Provider Student in an Organized Health Care Education/Training Program
DX: I10 Essential (primary) hypertension (principal); R53.83 Other fatigue; L40.9 Psoriasis, unspecified; Z87.891 Personal history of nicotine dependence
CPT/HCPCS: 36415; 80053; 80061; 82306; 83036; 84402; 84403; 84443; 85025; 86704; 86706; 86709; 86780; 86803; 87340; 87389; 96127

== ENCOUNTER 2025-06-04 14:58 | Outpatient (AMB) | payer OTHER, SELFPAY ==
--- NOTE | 2025-06-04 15:03 | MHC.PC.OV ---
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 Required: No Accompanied by: Self / Same As Patient Allergies penicillamine Allergy (Unknown, Verified 06/04/25 15:03) pt unsure, childhood Penicillins (PCN) Adverse Reaction (Unknown, Verified 06/04/25 15:03) UNKNOWN Medication List - Last Reconciled 06/04/25 by Sohan Jose MD cholecalciferol (vitamin D3) 25 mcg PO DAILY lisinopril 10 mg PO DAILY 90 days Tobacco use date assessed: 06/04/25 Fall risk assessment: No Falls in past year Last assessed Fall Risk: 06/04/25 Dental Screening Dental Screen Date: 06/04/25 Did you have a dental visit in the last 12 months?: No Did you have a dental problem in the last 6 months where you did not have access to dental care?: No Was dental information given to patient?: Patient has dentist HPI HPI Comments History of Present Illness Details The patient is a 64-year-old male presenting with concerns regarding his hypertension, dyspnea on exertion, and skin rash. The primary issue is Essential Hypertension, managed with current medication. 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 He reports previous blood pressure concerns with the threshold being 148/90 mmHg for his license renewal. He is considering a medication adjustment to maintain optimal levels. Additionally, the patient notes experiencing dyspnea on exertion, particularly when performing physical activities such as hiking, although he denies significant limitations and can manage stairs comfortably. He mentions that strenuous activities occasionally require breaks but does not indicate acute or concerning progression like severe shortness of breath upon minimal exertion. The patient also reports a recurring rash which had manifested a few years ago on his penis, previously treated with topical steroids which resolved the issue temporarily. Currently, the rash has recurred, described as flaky and itchy, suspecting psoriasis given previous dermatological evaluations, with concern about the effect on his overall well-being, including a decreased libido. 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 [facility] Medical History (Updated 06/04/25 @ 15:30 by Sohan Jose MD) Psoriasis Fatigue Personal history of nicotine dependence Hypertension Surgical History (Updated 06/01/25 @ 16:10 by Katelyn Cortez) History of colonoscopy (~02/24/19) Social History (Updated 08/10/22 @ 09:06 by Alfonzo Markham) Housing: House Alcohol intake: never Patient Tobacco Use Status: Former Tobacco user Years Smoked: 35 years-14 years quit e-Cigarette/Vaping Use: Never Used Current occupational status: employed 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 1. Little interest or pleasure in doing things: not at all 2. Feeling down, depressed, or hopeless: not at all 3. Trouble falling or staying asleep, or sleeping too much: not at all 4. Feeling tired or having little energy: not at all 5. Poor appetite or overeating: not at all 6. Feeling bad about yourself - or that you are a failure or have let yourself or your family down: not at all 7. Trouble concentrating on things, such as reading the newspaper or watching television: not at all 8. Moving or speaking so slowly that other people could have noticed. Or the opposite - being so fidgety or restless that you have been moving around a lot more than usual: not at all 9. Thoughts that you would be better off or of hurting yourself in some way: not at all Total score: 0 Depression Screening Interpretation: Negative Depression Screening Done: Yes 52301 - PHQ-9 Billing: Yes Source: Developed by Drs. Neel L. Nalini, Brian Rodríguez and colleagues, with an educational yin from [employer]. Thrive Questionnaire Date Thrive assessed: 06/04/25 I am a: Patient What is your living situation today?: I have a steady place to live Within the past 12 months, did the food you bought not last and you didn't have the money to get more?: Never true Within the past 12 months, did you worry whether your food would run out before you got money to buy more?: Never true Do you have trouble paying for medicines?: No Do you have trouble getting transportation to medical appointments?: No Do you have trouble paying your heating and electricity bill?: No Do you have trouble taking care of your child, family member or friend?: No Do you have trouble with day-to-day activities such as bathing, preparing meals, shopping, managing finances, etc.?: No Are you currently unemployed and looking for a job?: No Are you interested in more education?: No THRIVE Score: 0 AUDIT C Alcohol Use Questionnaire (AUDIT-C) 1. How often do you have a drink containing alcohol?: Never 3. How often do you have six or more drinks on one occasion?: Never Total Score: 0 Score Reviewed/Action Taken: Yes YODIT-7 AMB Questionnaire YODIT-7 Date YODIT - 7 assessed: 06/04/25 Feeling nervous, anxious, or on edge: 0 = Not at all Not being able to stop or control worryin = Not at all Worrying too much about different things: 0 = Not at all Trouble relaxin = Not at all Being so restless that it is hard to sit still: 0 = Not at all Becoming easily annoyed or irritable: 0 = Not at all Feeling afraid as if something awful might happen: 0 = Not at all Total YODIT-7 score (0-4 normal; 5-9 mild; 10-14 moderate; 15-21 severe): 0 Source: Developed by Drs. Neel Gayle, Brian Rodríguez and colleagues, with an educational yin from [employer]. YODIT-7 Assessment Billing YODIT-7 Assessment Tool: YODIT-7 Assessment 06697 Review of Systems Const Details: - General: Denies fatigue, occasional sleep difficulties. - Cardiovascular: Denies chest pain, palpitations. - Respiratory: Reports mild exertional dyspnea. - Gastrointestinal: Denies recent changes in bowel habits; stools were previously dark, now normal. - Genitourinary: Reports rash on penis, decreased libido. - Neurological: Reports occasional headaches, no vision changes. - Dermatological: Reports recurrent rash. All systems reviewed & are unremarkable except as reviewed in HPI and above Physical exam (Primary Care) Vital Signs: Last Vital Signs Temp 98.1 F 06/04/25 15:09 Pulse 74 06/04/25 15:09 Resp 18 06/04/25 15:09 BP 136/90 H 06/04/25 15:09 Pulse Ox 97 06/04/25 15:09 Oxygen Delivery Method Room Air 06/04/25 15:09 BMI result Body Mass Index 26.9 Tobacco/Smoking Status: Tobacco use Status Tobacco use date assessed 06/04/25 06/04/25 15:04 Patient Tobacco Use Status Former Tobacco user 06/04/25 15:11 e-Cigarette/Vaping Use Never Used 06/04/25 15:11 Depression Screening Interpretation: Negative Const Other: General: +Alert and oriented, Well nourished, No acute distress. Eye: Pupils are equal, round and reactive to light, Intact accommodation, Extraocular movements are intact, Normal conjunctiva, Vision unchanged. HENT: Normocephalic, Atraumatic, Tympanic membranes are clear, Normal hearing, Oral mucosa is moist, No pharyngeal erythema, Ear canals patent. Respiratory: Lungs CTA bilaterally, No wheeze, Respirations are non-labored, but patient reports mild shortness of breath with physical exertion. Cardiovascular: Regular rate, Regular rhythm, S1 auscultated, S2 auscultated, No murmur, Good pulses equal in all extremities, Normal peripheral perfusion, No edema. Blood pressure recorded at 136/90. Gastrointestinal: Soft, Non-tender, Non-distended, Normal bowel sounds, No organomegaly. Patient reports occasional dark stools, now resolved. Musculoskeletal: Normal range of motion, Normal strength, No tenderness, No swelling, No deformity, Normal gait. Integumentary: Warm, Dry, [place], Intact. Patient reports a flaky rash on the penis, consistent with psoriasis. Neurologic: Alert, Oriented, Normal sensory, Normal motor function, No focal defects, Cranial Nerves II-XII are grossly intact, Normal deep tendon reflexes. Patient reports occasional headaches. Psychiatric: Cooperative, Appropriate mood & affect, Normal judgment. Patient denies depression but reports anxiety related to sports team performance. Coding Level of Care Code New Pt Level 4 (02108) New Pt Prev Care 40-64y(64275) Diagnoses Hypertension, unspecified type I10 Hypertension type: unspecified Personal history of nicotine dependence Z87.891 Fatigue, unspecified type R53.83 Fatigue type: unspecified Psoriasis L40.9 Additional Codes PHQ-9 - 21853 - PHQ-9 Billing: Yes ([id number]) YODIT-7 Assessment Billing - YODIT-7 Assessment Tool: YODIT-7 Assessment 37887 ([id number]) Assessment & Plan Assessment & Plan (1) Hypertension: Comment: - Doubling of the current antihypertensive dosage from 5 mg to 10 mg. - Recommendation for daily at-home blood pressure monitoring before and after medication administration. - Follow-up appointment in 6 weeks to change medications Code(s): I10 - Essential (primary) hypertension Category: Medical Qualifiers: Hypertension type: unspecified Qualified Code(s): I10 - Essential (primary) hypertension (2) Personal history of nicotine dependence: Comment: (quit ~2010, +fam hx lung ca - dad) - 35 Pack Smoking History Code(s): Z87.891 - Personal history of nicotine dependence Category: Medical (3) Fatigue: Comment: Endorses generalized fatigue. Reports that when he wakes up he does not feel well rested however is able to ambulate significant amount of distances without any discomfort. While it could be a component of sleep apnea he also reports difficulty with erections therefore we will obtain a testosterone level and based on his review of he reports snoring we will obtain a sleep study. Code(s): R53.83 - Other fatigue Category: Medical Qualifiers: Fatigue type: unspecified Qualified Code(s): R53.83 - Other fatigue (4) Psoriasis: Comment: Endorses dry flaking scale around penile region and on exam has sliver patches with well-defined borders peeling. We will prescribe clobetasol 0.5 to be used sparingly currently has improvement in symptoms. Code(s): L40.9 - Psoriasis, unspecified Category: Medical Plan: Health maintenance: - Emphasized reduction in salt intake to aid hypertension management. - Advised to obtain lung cancer screening due to smoking history. - Reminded of the upcoming colonoscopy and prostate exam. Patient was informed and verbally consented to the use of an ambient scribe for clinic note documentation during this visit. 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 I advised on the slight increase in antihypertensive dosage and the need for regular self-monitoring of blood pressures. Regarding his dyspnea, reassurance was provided given that symptoms were mild and not impactful. For the recurrent rash suspected to be psoriasis, I prescribed clobetasol cream and emphasized cautious usage due to the sensitive area. I discussed possible contributing factors to decreased libido and potential links to his skin condition or antihypertensive medications. Screening for past tobacco use impacts was advised with referrals arranged for lung and prostate screenings. He is expected to contact for scheduling further evaluations as needed and return for consultations before critical UX physical tests. Orders: Orders Hemoglobin A1c Today I10 - Essential (primary) hypertension Hepatitis A,B,C Profile Today I10 - Essential (primary) hypertension Vitamin D 25-OH Total Today I10 - Essential (primary) hypertension Testosterone, Free/Total Today R53.83 - Other fatigue Complete Blood Count Auto Diff Today I10 - Essential (primary) hypertension Comprehensive Met. Panel Today I10 - Essential (primary) hypertension HIV Ab/Ag Today I10 - Essential (primary) hypertension Lipid Panel Today I10 - Essential (primary) hypertension TSH reflex Free T4 Today I10 - Essential (primary) hypertension Syphilis Screen Today I10 - Essential (primary) hypertension Referrals Open Access Screening Colonoscopy Referral Z12.11 - Encounter for screening for malignant neoplasm of colon Lung Cancer Screening Referral Z87.891 - Personal history of nicotine dependence Medications: New lisinopril 10 mg PO DAILY 90 tabs 0RF 90 days clobetasol 0.05% 1 appl topical BID 30 grams 0RF 2 weeks Patient Instructions: - Take the increased blood pressure medication dose as prescribed. - Keep a daily log of blood pressure readings. - Use the clobetasol cream for the skin rash twice daily as instructed. - Reduce your salt intake in your diet significantly. - Schedule and attend both upcoming lung cancer screening and prostate exams. - Be mindful of any escalation in breathing difficulty or other severe symptoms. - Follow up in six weeks for reassessment before the DOT physical.
[2025-06-04 15:09] VITALS: BP 136/90; PULSE 74; RESP 18; TEMP 36.7; O2SAT 97; BMI 26.9
== END 2025-06-04 15:30 | disposition home or self-care (01) ==
LOC: HO.HMCHD 14:59
PROVIDERS: PCP Student in an Organized Health Care Education/Training Program; Visit Provider Student in an Organized Health Care Education/Training Program
DX: I10 Essential (primary) hypertension (principal); R53.83 Other fatigue; L40.9 Psoriasis, unspecified; Z87.891 Personal history of nicotine dependence

== ENCOUNTER 2025-06-05 14:24 | Outpatient (REF) | payer OTHER, SELFPAY ==
--- OUTSIDE RECORDS SUMMARY | 2024-06-07 11:30 | XMS_ITS ---
Author Organization [facility] Address [address] [place] [address] Care Team Providers Care Auto Club Travel Counselor Name Role Phone Kristian Andrade MD Primary Care Provider Jacob Page Unavailable [phone] Encounters Encounter [facility] [address] 06/07/2024 Jacob Fermin Plan Of Treatment No Information Progress Notes * Margarette CLEMENSOB:1960 ( 64 yo M)Acc No.[id number]:06/07/2024 Progress Note Patient: Randell BROWNE Provider: Jose Maria Fermin DPM :1960 A ge:63 Y S ex:Male Date:06/07/2024 Address:[address] [place], [place] [id number] Pcp:Kristian Andrade MD Subjective: * Chief Complaints: [...] Date: 06/07/2024 Generated for Libbyi ng/Faarmidag/eTransmitting on: 06/05/2025 05:39 PM EDT
--- OUTSIDE RECORDS SUMMARY | 2025-06-05 17:40 | XMS_ITS | Patient Health Record ---
Author Organization [facility] [place] Address [address] [place] [address] Care Team Providers Care Information Assurance Name Role Phone Kristian Andrade MD Primary Care Provider Jacob Page Unavailable [phone] Allergies Allergen (clinical drug ingredient) Drug/Non Drug Allergy documented on EMR Reaction Allergy Type Onset Date Status Penicillin Unknown Drug Allergy Active Reason For Referral No Information Medications Medication SIG (Take, Route, Fr equency, Duration) Notes Start Date End Date Status Lisinopril 5 MG 1 tablet Orally Once a day; Duration: 30 day(s) Active Feldene 20 MG 1 capsule with food Orally Once a day; Duration: 30 day(s) 02/27/2022 Not-T aking Social History Tobacco Use: Social History Observation [...] Problem Status W/U Status Risk Notes Problem Plantar fasciitis of left foot ([id number] 9101) Plantar fasciitis of left foot (M72.2) Active confirmed [facility]ters En[facility] [address] [facility] Jacob Fermin Plan Of Treatment Pending Test Test Name Order Date X ray : Foot, left 3V 02/27/2022 X ray : Foot, left 3V 03/27/2024 X ray : Foot, right 3V 02/27/2022 Insurance Providers Payer Name Payer Address Payer Phone Subscriber Number Group Number Insured Name Patient Relationship to Insured Coverage Start Date Coverage End Date Blue Benefits [address] [address] [place] [address] [id number] Randell Clemens Self - patient is the insured Medical (General) History Medical History History ICD Code High blood pressure Surgical History Surgery Date(Month/Year)
== END 2025-06-05 14:25 | disposition home or self-care (01) ==
LOC: HO.LAB 14:24
PROVIDERS: Visit Provider Student in an Organized Health Care Education/Training Program
DX: Z13.89 Encounter for screening for other disorder (principal)

== ENCOUNTER 2025-06-07 15:16 | Outpatient (REF) | payer OTHER, SELFPAY ==
--- OUTSIDE RECORDS SUMMARY | 2024-06-07 11:30 | XMS_ITS ---
Author Organization [facility] Address [address] [place] [address] Care Team Providers Care Digital Media Representative Name Role Phone Kristian Andrade MD Primary Care Provider Jacob Page Unavailable [phone] Encounters Encounter [facility] [address] [facility] Jacob Fermin Plan Of Treatment No Information Progress Notes * Margarette CLEMENSOB:1960 ( 64 yo M)Acc No.[id number]:06/07/2024 Progress Note Patient: Randell BROWNE Provider: Jose Maria Fermin DPM :1960 A ge:63 Y S ex:Male Date:06/07/2024 Address:[address] [place], [place] [id number] Pcp:Kristian Andrade MD Subjective: * Chief Complaints: * * Medical History: Objective: * Vitals: Assessment: Plan: * Treatment: * Images: * The named appointment provid er may or may not be the originator of this progress note, and it is not deemed complete until electronically signed by the appointment provider. Sign off status: Pending * Provider: Jose Maria Fermin DPM Date: 06/07/2024 Generated for Libbyi ng/Faarmidag/eTransmitting on: 06/07/2025 07:26 PM EDT
--- OUTSIDE RECORDS SUMMARY | 2025-06-07 19:27 | XMS_ITS | Patient Health Record ---
Author Organization [facility]berts [place] Address [address] [place] [address] Care Team Providers Care Blow Down Operator Name Role Phone Kristian Andrade MD Primary Care Provider Jacob Page Unavailable [phone] Allergies Allergen (clinical drug ingredient) Drug/Non Drug [...] Notes Problem Plantar fasciitis of left foot ([id number] 9101) Plantar fasciitis of left foot (M72.2) Active confirmed Encounters En[facility] [address] [facility] Jacob Fermin Plan Of Treatment Pending Test Test Name Order Date X ray : Foot, left 3V 02/27/2022 X ray : Foot, left 3V 03/27/2024 X ray : Foot, right 3V 02/27/2022 Insurance Providers Payer Name Payer Address Payer Phone Subscriber Number Group Number Insured Name Patient Relationship to Insured Coverage Start Date Coverage End Date Blue Benefits [address] [address] [place] [address] [id number] Randell Clemens Self - patient is the insured Medical (General) History Medical History History ICD Code High blood pressure Surgical History Surgery Date(Month/Year)
[2025-06-08 08:29] LABS: ~HepC Num1 13.08 S/CO (0.00-0.79); ~Hepatitis C Antibody Reactive (Nonreactive)
[2025-06-08 12:54] LABS: HCV Log PCR 6.12 Log IU/mL (NOT DETECTED); HepC Viral Load 1320000 IU/mL (NOT DETECTED)
== END 2025-06-07 15:17 | disposition home or self-care (01) ==
LOC: HO.LAB 15:16
PROVIDERS: PCP Student in an Organized Health Care Education/Training Program; Visit Provider Student in an Organized Health Care Education/Training Program
DX: Z11.59 Encounter for screening for other viral diseases (principal); R76.8 Other specified abnormal immunological findings in serum
CPT/HCPCS: 36415; 86803; 87522

== ENCOUNTER 2025-07-26 14:05 | Outpatient (AMB) | payer OTHER, SELFPAY ==
--- OUTSIDE RECORDS SUMMARY | 2024-06-07 10:30 | XMS_ITS ---
Author Organization [facility] Address [address] [place] [address] Care Team Providers Care Support Services Specialist Name Role Phone Kristian Andrade MD Primary Care Provider Jacob Page Unavailable [phone] Encounters Encounter [facility] Date [facility] [address] [facility] Jacob Fermin Plan Of Treatment No Information Progress Notes * Margarette CLEMENSOB:1960 ( 64 yo M)Acc No.[id number]:06/07/2024 Progress Note Patient: Randell BROWNE Provider: Jose Maria Fermin DPM :1960 A ge:63 Y S ex:Male Date:06/07/2024 Address:[address] [place], [place] [id number] Pcp:Kristian Andrade MD Subjective: * Chief Complaints: * * Medical History: Objective: * Vitals: Assessment: Plan: * Treatment: * Images: * The named appointment provid er may or may not be the originator of this progress note, and it is not deemed complete until electronically signed by the appointment provider. Sign off status: Pending * Provider: Jose Maria Fermin DPM Date: 0 06/07/2024 Generated for Javan day/Madisyn/eTransmitting on: 09/25/2024 05:26 PM EST
--- NOTE | 2025-07-26 14:04 | A.OFFPC_ITS ---
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 He has been non-adherent with his new prescription for lisinopril 10 mg, instead opting to finish his previous lisinopril 5 mg prescription, and his blood pressure remains high and uncontrolled. Recent blood work was positive for hepatitis C, which is the likely cause of his elevated liver tests. He has an appointment scheduled for September 15 to address treatment for this condition. Other lab results were favorable, with an HbA1c of 5.1 and an LDL of 55. The patient reports a slight improvement in his shortness of breath. He also notes recent lifestyle changes, including going to bed earlier at 10 PM and discontinuing consumption of chocolate and soda after 7 PM, which has resulted in him feeling more refreshed in the morning and less fatigued at midday. The patient has a family history of hemochromatosis, as his brother has the condition and his daughter and one of his sons are carriers. He is concerned that he may also be a carrier. Medical History: - Hypertension - Hepatitis C - Dyspnea Medications: - Lisinopril 5 mg for hypertension - Vitamin D 50,000 IU supplements Family History: - Hemochromatosis: Brother is affected; daughter and a son are carriers. Diagnostic Results: - HbA1c: 5.1% - Liver function tests: Elevated - Hepatitis C antibody: Positive - Vitamin D level: Normal - LDL cholesterol: 55 mg/dL - Total cholesterol: Well-controlled Social History: - Diet: Reports he has stopped eating ch ocolate and drinking soda after 7 PM. - Sleep: Reports improved sleep habits, going to bed at 10 PM instead of 11:15 PM. - Exercise: Reports keeping active and w orking out. 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 Neel Gayle, Brissa Rae, Brian Cabrera and colleagues, with an educational yin from [employer] Review of Systems Narrative - Constitutional: Reports feeling more refreshed and less fatigued during the day. - Cardiovascular: Denies chest pain. - Respiratory: Reports slight improvement in dyspnea. - Gastrointestinal: Denies nausea or vomiting; reports normal eating, drinking, and bowel function. All systems reviewed & are unremarkable except as reviewed in HPI and above Physical exam (Primary Care) Vital Signs: Last Vital Signs Temp 98.5 F 07/26/25 14:10 Pulse 69 07/26/25 14:10 Resp 18 07/26/25 14:10 BP 160/80 H 07/26/25 14:10 Pulse Ox 97 07/26/25 14:10 Oxygen Delivery Method Room Air 07/26/25 14:10 Care Plan Goal for BP management: Uncontrolled due to patient mediaction non- adherence Next steps: Advised using medications prescribed Tobacco/Smoking Status: Tobacco use Status Tobacco use date assessed 06/04/25 07/26/25 14:04 Patient Tobacco Use Status Former Tobacco user 07/26/25 14:04 e-Cigarette/Vaping Use Never Used 07/26/25 14:04 Thrive Assessment: Date of Thrive Assessment Date Thrive assessed 06/04/25 07/26/25 14:04 Narrative General: Alert and oriented, Well nourished, No acute distress. Eye: Pupils are equal, round and reactive to light, Intact accommodation, Extraocular movements are intact, Normal conjunctiva, Vision unchanged. HENT: Normocephalic, Atraumatic, Tympanic membranes are clear, Normal hearing, Oral mucosa is moist, No pharyngeal erythema, Ear canals patent. Respiratory: Lungs CTA bilaterally, No wheeze, Respirations are non-labored, Shortness of breath slightly improved. Cardiovascular: Regular rate, Regular rhythm, S1 auscultated, S2 auscultated, No murmur, Good pulses equal in all extremities, Normal peripheral perfusion, No edema. Gastrointestinal: Soft, Non-tender, Non-distended, Normal bowel sounds, No organomegaly, No pain on palpation. Musculoskeletal: Normal range of motion, Normal strength, No tenderness, No swelling, No deformity, Normal gait. Integumentary: Warm, Dry, [place], Intact. Neurologic: Alert, Oriented, Normal sensory, Normal motor function, No focal defects, Cranial Nerves II-XII are grossly intact, Normal deep tendon reflexes. Psychiatric: Cooperative, Appropriate mood & affect, Normal judgment. Coding Level of Care Code Est Pt Level 4 (79210) Complex EM visit Add On G2211 Diagnoses Hypertension, unspecified type I10 Hypertension type: unspecified Hepatitis C virus infection without hepatic coma, unspecified chronicity B19.20 Viral hepatitis chronicity: unspecified Hepatic coma status: without hepatic coma Hemochromatosis carrier Z14.8 Psoriasis L40.9 Fatigue, unspecified type R53.83 Fatigue type: unspecified Assessment & Plan Assessment & Plan (1) Hypertension: Comment: - The patient has been non-adherent with lisinopril 10 mg, continuing his 5 mg dose instead, resulting in persistently high blood pressure. - He was instructed to begin taking lisinopril 10 mg tonight. - He will monitor his blood pressure at home and follow up in four weeks. Code(s): I10 - Essential (primary) hypertension Category: Medical Qualifiers: Hypertension type: unspecified Qualified Code(s): I10 - Essential (primary) hypertension (2) Hepatitis C: Comment: - The patient tested positive on recent labs, which is the likely cause of his elevated liver enzymes. - He has a specialist appointment scheduled for September 15 to discuss treatment, and we will await their recommendations. Code(s): B19.20 - Unspecified viral hepatitis C without hepatic coma Category: Medical Qualifiers: Viral hepatitis chronicity: unspecified Hepatic coma status: without hepatic coma Qualified Code(s): B19.20 - Unspecified viral hepatitis C without hepatic coma (3) Hemochromatosis carrier: Comment: Concern for Hemochromatosis - The patient has a significant family history of hemochromatosis. - Although he may be a carrier, his current blood counts are normal. - An iron profile will be checked during his next physical in May to assess further. Code(s): Z14.8 - Genetic carrier of other disease Category: Medical (4) Psoriasis: Comment: - Reports improvement in scaling with the help of the cream - Advised continued use PRN Code(s): L40.9 - Psoriasis, unspecified Category: Medical (5) Fatigue: Comment: - The patient's shortness of breath has slightly improved. - This may be related to his recent dietary changes or uncontrolled hypertension. - It is expected to improve further with better blood pressure control. - He is encouraged to continue his active and healthy lifestyle. Code(s): R53.83 - Other fatigue Category: Medical Qualifiers: Fatigue type: unspecified Qualified Code(s): R53.83 - Other fatigue Plan: Health Maintenance: - Continue taking vitamin D supplements. - Encouraged to continue improved sleep habits and dietary modifications (avoiding late-night sweets and soda). - Advised to remain physically active. - Plan to check an iron profile in May during his annual physical. Patient was informed and verbally consented to the use of an ambient scribe for clinic note documentation during this visit. Vital signs reviewed. Comprehensive history, review of systems, and physical exam completed. Medications, allergies, and problem list reviewed and updated. Counseling provided on nutrition, regular exercise, sleep hygiene, and moderation of alcohol use. Discussed age-appropriate screenings (mammogram, colonoscopy, Pap, bone density) and immunizations (flu, COVID, shingles, Tdap). Screened for depression, fall risk, and home safety; no current concerns. Discussed stress management, dental and vision care, and importance of ongoing preventive follow-up. Routine labs ordered for metabolic and lipid screening. Patient educated on healthy lifestyle and agrees with the plan. Plan I discussed with the patient the importance of starting the lisinopril 10 mg dose for his uncontrolled hypertension, explaining that I cannot assess his response to the proper dosage until he begins taking it. We reviewed his recent lab results, highlighting the excellent A1c and cholesterol levels but also the positive test for hepatitis C, which is the likely cause of his elevated liver tests. I acknowledged his upcoming specialist appointment for hepatitis C on September 15 and we agreed to await their treatment plan. I also addressed his concerns regarding his family history of hemochromatosis. I explained that while he could be a carrier, we would defer genetic testing due to cost and instead check an iron profile with his physical in May to avoid an unnecessary blood draw now. I advised him to monitor his blood pressure at home and we will follow up in four weeks. Medications: New sildenafil (Viagra) administer 30 minutes to 4 hours before activity 25 mg PO DAILY PRN 10 tabs 0RF sexual activity Patient Instructions: - Start taking the lisinopril 10 mg prescription tonight. - Continue to take your vitamin D supplement as you have been. - Check your blood pressure regularly at home. - Keep up with your healthy diet, improved sleep schedule, and physical a ctivity. - Make sure to attend your specialist appointment on September 15 to discuss treatment for Hepatitis C. - Return for a follow-up visit in four weeks.
[2025-07-26 14:10] VITALS: BP 160/80; PULSE 69; RESP 18; TEMP 36.9; O2SAT 97
--- OUTSIDE RECORDS SUMMARY | 2025-07-26 17:27 | XMS_ITS | Patient Health Record ---
[facility] Address [address] [place] [address] Care Team Providers Care Mold Capper Name Role Phone Kristian Andrade MD Primary Care Provider Jacob Page Unavailable [phone] Allergies Allergen (clinical drug ingredient) Drug/Non Drug [...] Notes Problem Plantar fasciitis of left foot ([id number]) Plantar fasciitis of left foot (M72.2) Active confirmed Plan Of Treatment Pending Test Test Name Order Date X ray : Foot, left 3V 02/27/2022 X ray : Foot, left 3V 03/27/2024 X ray : Foot, right 3V 02/27/2022 Insurance Providers Payer Name Payer Address Payer Phone Subscriber Number Group Number Insured Name Patient Relationship to Insured Coverage Start Date Coverage End Date Blue Benefits [address] [address] [place] [address] [id number] Randell Clemens Self - patient is the insured Medical (General) History Medical History History ICD Code High blood pressure Surgical History Surgery Date(Month/Year)
== END 2025-07-26 14:31 | disposition home or self-care (01) ==
LOC: HO.HMCHD 14:05
PROVIDERS: PCP Student in an Organized Health Care Education/Training Program; Visit Provider Student in an Organized Health Care Education/Training Program
DX: I10 Essential (primary) hypertension (principal); B19.20 Unspecified viral hepatitis C without hepatic coma; Z14.8 Genetic carrier of other disease; L40.9 Psoriasis, unspecified; R53.83 Other fatigue

== ENCOUNTER 2025-08-23 08:12 | Outpatient (AMB) | payer OTHER, SELFPAY ==
--- NOTE | 2025-08-23 08:24 | A.OFFPC_ITS ---
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 Accompanied by: Self / Same As Patient Allergies penicillamine Allergy (Unknown, Verified 08/23/25 08:24) pt unsure, childhood Penicillins (PCN) Adverse Reaction (Unknown, Verified 08/23/25 08:24) UNKNOWN Medication List - Last Reconciled 08/23/25 by Sohan Jose MD cholecalciferol (vitamin D3) 50 mcg PO DAILY clobetasol 0.05% 1 appl topical BID PRN lisinopril 10 mg PO DAILY 90 days sildenafil (Viagra) 25 mg PO DAILY PRN Tobacco use date assessed: 06/04/25 Fall risk assessment: No Falls in past year Last assessed Fall Risk: 08/23/25 Dental Screening Dental Screen Date: 06/04/25 HPI HPI Comments History of Present Illness Details History of Present Illness The patient is a 64 year old male presenting for follow-up for management of chronic conditions including hypertension, psoriasis, and hepatitis C. He reports he is now compliant with his medications. Regarding his hypertension, his last blood pressure reading was 160/80 mmHg. Since starting lisinopril 10 mg, his blood pressure has improved to 144/86 mmHg. He reports that he has not been checking his blood pressures at home. For his psoriasis, he uses clotrimazole as needed for breakouts and has refills available. For his hepatitis C, he was found to have a high viral load of approximately 1.3 million. He was scheduled to see an infectious disease specialist on September 13 [address] has instead [address] Dr[address] Tamayo on September 10 for this. He has a history of lung disease and is scheduled for a scan and a follow-up appointment for this condition. He reports feeling well overall and has made dietary changes by cutting back on nighttime snacks. He has a history of working out in his garage but stopped around age 61 and describes himself as having gotten lazy. Medical History: - Hypertension - Psoriasis - Hepatitis C, with a viral load of appr oximately 1.3 million - Lung disease Medications: - Lisinopril 10 mg for hypertension - Clotrimazole for psoriasis Family History: - Mother is alive at age 94. Diagnostic Results: - Vitals: Blood pressure 144/86 mmHg, co mpared to 160/80 mmHg previously. - Labs: Hepatitis C viral load was high at approximately 1.3 million. Social History - Diet: Reports cutting back on nighttim e snacks and eating more at dinner. - Exercise: He used to work out in his [email or web address] but stopped around age 61. - Family: Lives with his and will agnieszka e hosting his mother and brothers for [employer]. Health Maintenance - Diet: The patient has reduced his nigh ttime snacking and is eating more at dinner. - Weight Management: Discussed the goal of losing 20 pounds to help manage his blood pressure. - Exercise: Advised to resume working ou t, as he has been inactive since age 61. Patient was informed and verbally consented to the use of an ambient scribe for clinic note documentation during this visit. Vital signs reviewed. Comprehensive history, review of systems, and physical exam completed. Medications, allergies, and problem list reviewed and updated. Counseling provided on nutrition, regular exercise, sleep hygiene, and moderation of alcohol use. Discussed age-appropriate screenings (mammogram, colonoscopy, Pap, bone density) and immunizations (flu, COVID, shingles, Tdap). Screened for depression, fall risk, and home safety; no current concerns. Discussed stress management, dental and vision care, and importance of ongoing preventive follow-up. Routine labs ordered for metabolic and lipid screening. Patient educated on healthy lifestyle and agrees with the plan. 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 Neel Gayle, Brissa Rae, Brian Cabrera and colleagues, with an educational yin from [employer]. Review of Systems Narrative Review of Systems - General: Reports feeling well overall. - Neurological: Denies lightheadedness. - Integumentary: Reports his psoriasis is doing well. All systems reviewed & are unremarkable except as reviewed in HPI and above Physical exam (Primary Care) Vital Signs: Last Vital Signs Temp 97.6 F 08/23/25 08:27 Pulse 64 08/23/25 08:27 Resp 18 08/23/25 08:27 BP 144/86 H 08/23/25 08:27 Pulse Ox 94 08/23/25 08:27 Oxygen Delivery Method Room Air 08/23/25 08:27 BMI result Body Mass Index 27.3 Tobacco/Smoking Status: Tobacco use Status Tobacco use date assessed 06/04/25 08/23/25 08:29 Patient Tobacco Use Status Former Tobacco user 08/23/25 08:29 e-Cigarette/Vaping Use Never Used 08/23/25 08:29 Thrive Assessment: Date of Thrive Assessment Date Thrive assessed 06/04/25 08/23/25 08:29 Narrative Physical Exam General: Alert and oriented, Well nourished, No acute distress. Eye: Pupils are equal, round and reactive to light, Intact accommodation, Extraocular movements are intact, Normal conjunctiva, Vision unchanged. HENT: Normocephalic, Atraumatic, Tympanic membranes are clear, Normal hearing, Oral mucosa is moist, No pharyngeal erythema, Ear canals patent. Respiratory: Lungs CTA bilaterally, No wheeze, Respirations are non-labored. Cardiovascular: Regular rate, Regular rhythm, S1 auscultated, S2 auscultated, No murmur, Good pulses equal in all extremities, Normal peripheral perfusion, No edema. Gastrointestinal: Soft, Non-tender, Non-distended, Normal bowel sounds, No organomegaly. Musculoskeletal: Normal range of motion, Normal strength, No tenderness, No swelling, No deformity, Normal gait. Integumentary: Warm, Dry, [place], Intact. Neurologic: Alert, Oriented, Normal sensory, Normal motor function, No focal defects, Cranial Nerves II-XII are grossly intact, Normal deep tendon reflexes. Psychiatric: Cooperative, Appropriate mood & affect, Normal judgment. Coding Level of Care Code Est Pt Level 4 (38783) Add On Problem Visit Only Diagnoses Hypertension, unspecified type I10 Hypertension type: unspecified Psoriasis L40.9 Hepatitis C antibody detected R76.8 Personal history of nicotine dependence Z87.891 Hemochromatosis carrier Z14.8 Assessment & Plan Assessment & Plan (1) Hypertension: Comment: - The patient's blood pressure has improved from 160/80 mmHg to 144/86 mmHg on lisinopril 10 mg but remains above the goal. - The dose will be increased to 20 mg daily by taking two 10 mg tablets. - The patient was instructed to monitor for lightheadedness and, if it occurs, to reduce the dose to 15 mg daily by taking one and a half tablets. - The goal is to achieve better blood pressure control. Code(s): I10 - Essential (primary) hypertension Category: Medical Qualifiers: Hypertension type: unspecified Qualified Code(s): I10 - Essential (primary) hypertension (2) Psoriasis: Comment: - The condition is well-managed with as-needed clotrimazole. - The patient has available refills. Code(s): L40.9 - Psoriasis, unspecified Category: Medical (3) Hepatitis C antibody detected: Comment: - The patient has a positive diagnosis with a high viral load of about 1.3 million. - He has established care with Dr. Tamayo for management. Code(s): R76.8 - Other specified abnormal immunological findings in serum Category: Medical (4) Personal history of nicotine dependence: Comment: (quit ~2010, +fam hx lung ca - dad) - 35 Pack Smoking History - The patient is scheduled for a scan and follow-up appointment. Code(s): Z87.891 - Personal history of nicotine dependence Category: Medical (5) Hemochromatosis carrier: Comment: - Concern for Hemochromatosis - The patient has a significant family history of hemochromatosis. - Although he may be a carrier, his current blood counts are normal. - An iron profile will be checked during his next physical in May to assess further. Code(s): Z14.8 - Genetic carrier of other disease Category: Medical Plan: Health Maintenance: - Diet: The patient has reduced his nighttime snacking and is eating more at dinner. - Weight Management: Discussed the goal of losing 20 pounds to help manage his blood pressure. - Exercise: Advised to resume working out, as he has been inactive since age 61. Patient was informed and verbally consented to the use of an ambient scribe for clinic note documentation during this visit. Plan I discussed with the patient that his blood pressure has improved on lisinopril 10 mg but is still higher than our goal. We agreed to increase his lisinopril dose to 20 mg daily, and I provided instructions to reduce the dose to 15 mg if he experiences lightheadedness. I educated him on the importance of weight loss and exercise for blood pressure control and encouraged him to lose 20 pounds. We reviewed his hepatitis C diagnosis and high viral load, and I confirmed that his follow-up with Dr. Tamayo is appropriate for ongoing management. I noted his upcoming appointments for his lung condition. We scheduled a follow-up visit in six months to re-evaluate his blood pressure and overall status. Medications: New lisinopril 20 mg PO DAILY 90 tabs 1RF Discontinued lisinopril Discontinued Reason: Doctor's Order 10 mg PO DAILY 90 days 90 tabs 0RF Patient Instructions: - Increase your lisinopril dose by taking two of your 10 mg pills each day for a total of 20 mg. - If you feel lightheaded, reduce your dose to 15 mg daily. You can do this by taking one full 10 mg pill and one-half of another 10 mg pill. - Continue to use your clotrimazole cream for psoriasis as needed. You have refills available. - Keep your appointment with Dr. Tamayo for your hepatitis C. Let him know that your viral load was high, around 1.3 million. - Go to your scan and follow-up appointment for your lung condition tomorrow. - Try to lose about 20 pounds and start exercising again to help lower your blood pressure. - Schedule a follow-up appointment to see me in six months.
[2025-08-23 08:27] VITALS: BP 144/86; PULSE 64; RESP 18; TEMP 36.4; O2SAT 94; BMI 27.3
== END 2025-08-23 08:37 | disposition home or self-care (01) ==
LOC: HO.HMCHD 08:12
PROVIDERS: PCP Student in an Organized Health Care Education/Training Program; Visit Provider Student in an Organized Health Care Education/Training Program
DX: I10 Essential (primary) hypertension (principal); L40.9 Psoriasis, unspecified; R76.89 Other specified abnormal immunological findings in serum; Z87.891 Personal history of nicotine dependence; Z14.8 Genetic carrier of other disease

== ENCOUNTER 2025-08-24 07:16 | Outpatient (AMB) | payer OTHER, SELFPAY ==
--- OUTSIDE RECORDS SUMMARY | 2024-06-07 10:30 | XMS_ITS ---
Author Organization [facility] Address [address] [place] [address] Care Team Providers Care Science Teacher Name Role Phone Kristian Andrade MD Primary Care Provider Jacob Page Unavailable [phone] Encounters Encounter Location Date [facility] [address] [facility]/07/2024 Jacob Fermin Plan Of Treatment No Information Progress Notes * Margarette CLEMENSOB:1960 ( 64 yo M)Acc No.[id number]:06/07/2024 Progress Note Patient: Randell BROWNE Provider: Jose Maria Fermin DPM :1960 A ge:63 Y S ex:Male Date:06/07/2024 Address:[address] [place], [place] [id number] Pcp:Kristian Andrade MD Subjective: * Chief Complaints: [...] DPM Date: 0 06/07/2024 Generated for Javan day/Fakelly/eTransmitting on: 1 10/25/2024 07:18 AM EST
--- NOTE | 2025-08-23 15:50 | A.OFFVIS_ITS ---
Intake Visit Reasons: Former Smoker Allergies penicillamine Allergy (Unknown, Verified 08/23/25 08:24) pt unsure, childhood Penicillins (PCN) Adverse Reaction (Unknown, Verified 08/23/25 08:24) UNKNOWN HPI HPI Former Smoker: Details: Initial telehealth visit for this 64 smoker with a 35PYH. Patient started smoking at age 14 for 37 years at 1ppd. He quit 13 years ago in 2011 . Denies marijuana use. Denies second hand smoke exposure. Denies exposure to chemicals or substances like asbestos. . History family history of lung cancer. Father at 75 Denies personal history of cancers. Denies chest CT in last year. . Denies recent travel outside the [place]. Denies recent respiratory illness or recent hospitalization for respiratory issues. History testing positive for COVID. Admits receiving COVID Vaccine.x3. . Denies fever, chills, new/worsening cough, hemoptysis, hoarseness or dysphagia. Denies significant chest pain, significant dyspnea or unintentional weight loss. Patient Lung Cancer Screening Questionnaire reviewed with patient by provider. . Shared Decision Making Completed. Patient meets criteria. Discussed in detail with patient, the risk vs benefit of LDCT screening. Patient consents to proceed with scan. Discussed smoking cessation. [facility] Medical History (Updated 08/23/25 @ 16:03 by Heather Horta PA-C) Hemochromatosis carrier Hepatitis C Hepatitis C antibody detected Psoriasis Fatigue Personal history of nicotine dependence Hypertension Surgical History (Updated 06/01/25 @ 16:10 by Katelyn Cortez) History of colonoscopy (~02/24/19) Social History (Updated 08/23/25 @ 16:04 by Heather Horta PA-C) Housing: House Alcohol intake: never Patient Tobacco Use Status: Former Tobacco user Years Smoked: (onset 14yo, 1ppd x 37yrs, 35pyh - quit 2011) e-Cigarette/Vaping Use: Never Used Current occupational status: employed 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 [employer] / right 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891 - Personal history of nicotine dependence Category: Medical Plan: - SDM visit completed today via phone. LDCT scheduled for 08/24/25. - Patient meets criteria for LDCT for lung cancer screening purposes and is asymptomatic. - Smoking cessation counseling offered. Patients can always call [phone]. - Will arrange for a LDCT scan of the chest for screening purposes at [facility]. - Risks, benefits, and alternatives were discussed in detail and the patient agrees to proceed. - Risks discussed include but are not limited to: radiation exposure, anxiety during testing and while awaiting results, false negatives, false positives and possibility of additional intervention such as further imaging or surgical procedures for benign disease. - Benefits are obviously detection of lung cancer at an early stage which can lead to improved outcomes. - Discussed the importance of screening program compliance with adherence to yearly LDCT scan as scheduled - or sooner interval scans for personalized screening regimen. - Discussed follow up plan. Our office will send a letter discussing results and if needed set up phone call and office visit based on CT findings. - Patient educated on results categorization and the management decisions for suspicious findings potentially found on the screening LDCT scan. Any patient with a Lung RADS score of 3 or 4 will be reviewed by a multidisciplinary team at [facility] to form a plan of action in regards to scan findings. - If further work up is warranted for a suspicious lung finding this will be followed by the Lung Cancer Screening program in conjunction with the Thoracic Surgery Department at [facility]. - A copy of the office note and LDCT will be sent to the patient's PCP - as well as documentation on any associated further plans of care. - Incidental findings on LDCT are the PCP's responsibility. These findings are indicated with an S finding on the LDCT Assessment. A note discussing the findings will be sent to the PCP who is then responsible for further management. - All questions answered.? Coding Level of Care Code Lung Cancer Screening G0296 Diagnoses Personal history of nicotine dependence Z87.891
--- OUTSIDE RECORDS SUMMARY | 2025-08-24 07:19 | XMS_ITS | Patient Health Record ---
Author Organization [facility] [place] Address [address] [place] [address] Care Team Providers Care Unhairer Name Role Phone Kristian Andrade MD Primary Care Provider Jacob Page Unavailable [phone] Allergies Allergen (clinical drug ingredient) Drug/Non Drug [...] Notes Problem Plantar fasciitis of left foot ([id number] [id number]) Plantar fasciitis of left foot (M72.2) [...] Coverage End Date Blue Benefits [address] [address] [place] [address] [id number] Randell Clemens Self - patient is the insured Medical (General) History Medical History History ICD Code High blood pressure Surgical History Surgery Date(Month/Year)
== END 2025-08-24 07:25 | disposition home or self-care (01) ==
LOC: HO.HPS 07:16
PROVIDERS: PCP Student in an Organized Health Care Education/Training Program; Visit Provider Physician Assistant Medical
DX: Z87.891 Personal history of nicotine dependence (principal)
CPT/HCPCS: G0296

== ENCOUNTER 2025-08-24 09:39 | Outpatient (REF) | payer OTHER, SELFPAY ==
--- NOTE | ~2025-08-24 | CT_ITS ---
EXAMINATION: CT LUNG SCREENING HISTORY: Z87.891 - Personal history of nicotine dependence TECHNIQUE: Low dose axial images were obtained from the sternal notch to upper abdomen without IV contrast per standard departmental protocol. Sagittal and coronal reformatted images were also obtained and reviewed. One or more of the following techniques was used for dose reduction: Automated exposure control, adjustment of the mA and/or kV according to patient size, use of iterative reconstruction technique. DLP: 56 mGy-cm COMPARISON: There are no prior studies available for comparison. FINDINGS: Lung nodules: There is a 5 mm nodule in the right upper lobe (series 5, image 74). A 2 mm nodule is seen along the right minor fissure (series 5, image 79) which likely represents a lymph node. A 3 mm nodule along the right major fissure (series 5, image 93) also likely represents a lymph node. There is a tubular opacity at the medial aspect of the right lung base (series 5, images 123-128) which may represent mucoid impaction. There is a 5 mm nodule at the left lung apex (series 5, image 26). Emphysema: mild Coronary Calcification: moderate Aortic Arch Calcification: mild Potentially Significant Incidentals : none Additional Chest Findings: There is no pleural or pericardial effusion. No mediastinal or axillary lymphadenopathy is identified. Visualized upper abdomen: The visualized portions of the liver, spleen, and adrenals have an unremarkable unenhanced appearance. CT/CT lung screening IMPRESSION: No suspicious pulmonary nodules are identified. LUNG-RADS ASSESSMENT: Lung-RADS 2: Benign MANAGEMENT: Continue annual screening with LDCT in 12 months Category S: N/A Electronically signed by: Neel Roberts MD 08/24/2025 10:14 AM [facility]
== END 2025-08-24 09:40 | disposition home or self-care (01) ==
LOC: HO.CT 09:39
PROVIDERS: PCP Student in an Organized Health Care Education/Training Program; Visit Provider Physician Assistant Medical
DX: Z12.2 Encounter for screening for malignant neoplasm of respiratory organs (principal); Z87.891 Personal history of nicotine dependence
CPT/HCPCS: 71271

== ENCOUNTER → 2025-08-24 09:40 | Outpatient (BNV) | payer OTHER, SELFPAY | PROVIDERS: PCP Student in an Organized Health Care Education/Training Program; Visit Provider Radiology Diagnostic Radiology | DX: Z87.891 Personal history of nicotine dependence (principal) | CPT/HCPCS: 71271 ==

== ENCOUNTER 2025-09-10 12:23 | Outpatient (REF) | payer OTHER, SELFPAY ==
--- OUTSIDE RECORDS SUMMARY | 2024-06-07 10:30 | XMS_ITS ---
Author Organization [facility] Address [address] [place] [address] Care Team Providers Care Nuclear Powerplant Mechanic Helper Name Role Phone Kristian Andrade MD Primary Care Provider Jacob Page Unavailable [phone] Encounters Encounter [facility] [address] [facility]/07/[facility] Jacob Fermin Plan Of Treatment No Information Progress Notes * Margarette CLEMENSOB:1960 ( 64 yo M)Acc No.[id number]:06/07/2024 Progress Note Patient: Randell BROWNE Provider: Jose Maria Fermin DPM :1960 A ge:63 Y S ex:Male Date:06/07/2024 Address:[address] [place], [place] [id number] Pcp:Kristian Andrade MD Subjective: * Chief Complaints: [...] 06/07/2024 Generated for Javan day/Madisyn/eTransmitting on: 1 02:22 PM EST
[2025-09-10 13:16] LABS: MANUAL DIFF FLAG NO
[2025-09-10 13:18] LABS: Hematocrit 50.5 % (42.0-52.0); Hemoglobin 17.6 g/dl (14.0-18.0); Imm Gran Abs Auto 0.03 X10*3/uL (0.00-0.03); Imm Gran Pct Auto 0.4 % (0.0-0.4); Lymphocytes Absolute Auto 1.5 X10*3/uL (1.2-4.9); Mean Corpuscular HGB Conc 34.9 g/dl (31.0-36.0); Mean Corpuscular Hemoglobin 31.8 pg (27.0-33.0); Mean Corpuscular Volume 91.3 fL (80.0-98.0); NRBC Abs Auto 0.000 X10*3/uL (0.0-0.012); NRBC Pct Auto 0.0 /100WBC (0.0-0.2); Platelet Count 297 X10*3/uL (160-400); Red Blood Count 5.53 X10*6/uL (4.60-5.80); White Blood Count 7.9 X10*3/uL (4.8-10.8)
[2025-09-10 13:42] LABS: Hemoglobin A1C 148.8986 umol/L
[2025-09-10 13:44] LABS: Alanine Aminotransferase 54 U/L (0-40); Albumin Level 4.7 g/dL (3.5-5.0); Alkaline Phosphatase 85 U/L (39-117); Aspartate Amino Transferase 41 U/L (5-37); Iron 194 mcg/dL (45-160); Percent Iron Saturation 64 % (15-50); Total Iron Binding Capacity 305 mcg/dL (228-428); Total Protein 7.1 g/dL (6.5-8.0); Unsaturated Iron Binding 111 ug/dL
[2025-09-10 13:53] LABS: Ferritin 223 ng/mL (20-250)
--- OUTSIDE RECORDS SUMMARY | 2025-09-10 14:22 | XMS_ITS | Patient Health Record ---
Author Organization [facility] Address [address] [place] [address] Care Team Providers Care Digital Content Specialist Name Role Phone LAURY FENTON M.D. Primary Care Provider Arnel Telles Jr Allergies Allergen (clinical drug ingredient) Drug/Non Drug Allergy documented on EMR Reaction Allergy Type Onset Date Status Penicillin Unknown Drug Allergy Active Results Component Value Reference Range Flag Notes Complete Blood Count Auto Di ff (Not yet reviewed by provider) Interpretation: Performing Lab:[facility], [address] [place] [id number] Notes/Report: White Blood Count 7.9 4.8-10.8 X10*3/uL N Red Blood Count 5.53 4.60-5.80 X10*6/uL N Hemoglobin 17.6 14.0-18.0 g/dl N Hematocrit 50.5 42.0-52.0 % N Mean Corpuscular Volume 91.3 80.0-98.0 fL N Mean Corpuscular Hemoglobin 31.8 27.0-33.0 pg N Mean Corpuscular HGB Conc 34.9 31.0-36.0 g/dl N Red Cell Distribution Width 12.3 11.0-16.0 % N Platelet Count 297 160-400 X10*3/uL N Mean Platelet Volume 9.2 9.4-12.4 fL L Neutrophils Percent Auto 69.7 45-73 % N Imm Gran Pct Auto 0.4 0.0-0.4 % N Lymphocytes Percent Auto 19.4 20-40 % L Monocytes Percent Auto 9.1 2-11 % N Eosinophils Percent Auto 0.8 0-4 % N Basophils Percent Auto 0.6 0-2 % N NRBC Pct Auto 0.0 0.0-0.2 /100WBC N Neutrophils Absolute Auto 5.5 2.0-8.3 x10*3/uL N Imm Gran Abs Auto 0.03 0.00-0.03 X10*3/uL N Lymphocytes Absolute Auto 1.5 1.2-4.9 X10*3/uL N Monocytes Absolute Auto 0.7 0.1-1.2 X10*3/uL N Eosinophils Absolute Auto 0.1 0.0-0.4 X10*3/uL N Basophils Absolute Auto 0.1 0.0-0.2 X10*3/uL N NRBC Abs Auto 0.000 0.0-0.012 X10*3/uL N Liver Panel (Not yet reviewe d by provider) Interpretation: Performing Lab:[address] [phone] Notes/Report: Bilirubin Total 0.5 0.0-1.0 mg/dL N Bilirubin Direct 0.3 0.0-0.5 mg/dL N Aspartate Amino Transferase 41 5-37 U/L H Alanine Aminotransferase 54 0-40 U/L H Total Protein 7.1 6.5-8.0 g/dL N Albumin Level 4.7 3.5-5.0 g/dL N Alkaline Phosphatase 85 39-117 U/L N IRON PROFILE (Not yet review ed by provider) Interpretation: Performing Lab:[address] [phone] Notes/Report: Iron 194 45-160 mcg/dL H Total Iron Binding Capacity 305 228-428 mcg/dL N Percent Iron Saturation 64 15-50 % H Unsaturated Iron Binding 111 Ferritin (Not yet reviewed b y provider) Interpretation: Performing Lab:[address] [phone] Notes/Report: Ferritin 223 20-250 ng/mL N Hemoglobin A1c (Not yet revi ewed by provider) Interpretation: Performing Lab:[address] [phone] Notes/Report: Hemoglobin A1c % 5.2 <6.0 % Hemoglobin A1C Reference Range Adults: 4.8 - 6.0 % Non diabetic: < 6.0 % Goal: < 7.0 % Additional Action Suggested: > 8.0 % Note: Hemoglobin A1c results are invalid for patients with abnormal amounts of HbF. Blood transfusions may impact the HbA1c concentration in the patient sample. Estimated Average Glucose 103 eAG = Estimated average glucose which is %A1C expressed as average glucose, using the formula of the F2Y-Terfowm Average Glucose study (ADAG), Diabetes Care, Vol.31,#8, 2007 Reason For Referral No Information Medications Medication [...] Info Options Details Miscellaneous: Marital status: Occupation: [employer] R Problems Problem Type SNOMED Code ICD Code Onset Dates Problem Status W/U Status Risk Notes Problem Hepatitis C (48472865) Hepatitis C (B19.20) Active confirmed Vital Signs Blood pressure diastolic 01 mm Hg 09/10/2025 Height 56 in 09/10/2025 Blood pressure systolic 001 mm Hg 09/10/2025 Weight 172.8 lbs 09/10/2025 BMI 38.74 kg/m2 09/10/2025 Encounters Encounter Location Date Provider Diagnosis [facility] [address] [place] [phone] 09/10/2025 Arnel Tamayo Jr Hepatitis C B19.20 and Colon cancer screening Z12.11 Assessments Encounter Date Diagnosis (ICD Code) Assessment Notes Treatment Notes Treatment Clinical Notes Section Notes 09/10/2025 Colon cancer screening (ICD-10 - Z12.11) o 09/10/2025 Hepatitis C (ICD-10 - B19.20) o Plan Of Treatment Pending Test Test Name Order Date LIVER PROFILE 09/10/2025 IRON + IBC (FE) 09/10/2025 FERRITIN 09/10/2025 CBC w/o DIFF 09/10/2025 PROTHROMBIN TIME (PT, INR) 09/10/2025 HEMOCHROMATOSIS (C282Y) 09/10/2025 Complete Blood Count Auto Diff Liver Panel 09/10/2025 IRON PROFILE 09/10/2025 Ferritin 09/10/2025 Liver Fibrosis Pnl 09/10/2025 Hemoglobin A1c 09/10/2025 Next Appt Details Provider Name:Arnel brown Jr, 10/12/2025 08:20:00 AM, [address] [place] [address], [phone], Insurance Providers Payer Name Payer Address Payer Phone Subscriber Number Group Number Insured Name Patient Relationship to Insured Coverage Start Date Coverage End Date [employer] [place] [address] [address] [place] [address] [id number] LANI CLEMENS Self - patient is the insured Medical (General) History Medical History History ICD Code hypertension
--- OUTSIDE RECORDS SUMMARY | 2025-09-10 14:23 | XMS_ITS | Patient Health Record ---
Author Organization [facility] [place] Address [address] [place] [address] Care Team Providers Care Director [employer] Name Role Phone Kristian Andrade MD Primary Care Provider Jacob Page Unavailable [phone] Allergies Allergen (clinical drug ingredient) Drug/Non Drug [...] Notes Problem Plantar fasciitis of left foot ([id number] 9101) Plantar fasciitis of left foot (M72.2) [...] Coverage End Date Blue Benefits [address] [address] [place] [address] [id number] Randell Clemens Self - patient is the insured Medical (General) History Medical History History ICD Code High blood pressure Surgical History Surgery Date(Month/Year)
== END 2025-09-10 12:24 | disposition home or self-care (01) ==
LOC: HO.10HDL 12:23
PROVIDERS: Visit Provider Internal Medicine Gastroenterology
DX: B19.20 Unspecified viral hepatitis C without hepatic coma (principal); Z12.11 Encounter for screening for malignant neoplasm of colon; Z13.1 Encounter for screening for diabetes mellitus
CPT/HCPCS: 36415; 80076; 81596; 82728; 83036; 83540; 85025

== ENCOUNTER 2025-09-12 10:27 | Outpatient (REF) | payer OTHER, SELFPAY ==
--- OUTSIDE RECORDS SUMMARY | 2024-06-07 10:30 | XMS_ITS ---
Author Organization [facility] Address [address] [place] [address] Care Team Providers Care Reproductive Surgeon Name Role Phone Kristian Andrade MD Primary Care Provider Jacob Page Unavailable [phone] Encounters Encounter [facility] Date [facility] [address] [facility]24 Jacob Fermin Plan Of Treatment No Information Progress Notes * Margarette CLEMENSOB:1960 ( 64 yo M)Acc No.[id number]:06/07/2024 Progress Note Patient: Randell BROWNE Provider: Jose Maria Fermin DPM :1960 A ge:63 Y S ex:Male Date:06/07/2024 Address:[address] [place], [place] [id number] Pcp:Kristian Andrade MD Subjective: * Chief Complaints: [...] 0 06/07/2024 Generated for Javan day/Madisyn/eTransmitting on: 1 11:42 AM EST
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
--- OUTSIDE RECORDS SUMMARY | 2025-09-11 10:51 | XMS_ITS ---
Author Organization [facility] Address [address] [place] [phone] Care Team Providers Care Cutting Room Supervisor Name Role Phone LAURY FENTON M.D. Primary Care Provider Yolanda Tamayo Jr, Arnel Chadwick REASON FOR VISIT labs Encounters Encounter Location Date Provider Diagnosis [facility] [address] [place] [phone] 09/11/2025 Arnel Tamayo Jr Hepatitis C B19.20 Assessments Encounter Date Diagnosis (ICD Code) Assessment Notes Treatment Notes Treatment Clinical Notes Section Notes 09/11/2025 Hepatitis C (ICD-10 - B19.20) Plan Of Treatment Pending Test Test Name Order Date PROTHROMBIN TIME (PT, INR) 09/11/2025 HEMOCHROMATOSIS (C282Y) 09/11/2025 HEPATITIS C VIRAL LOAD 09/11/2025 Hepatitis C Genotype 09/11/2025 Next Appt Details Provider Name:Arnel brown Jr, 10/12/2025 08:20:00 AM, [address] [place] [address], [phone], Progress Notes * LANI CLEMENSDOB:[birth year] (64 yo M)Acc No.[id number]:09/11/2025 Patient: LANI BROWNE :1960 A ge:64 Y S ex:Male Address:[address], [place] [address] Subjective: * Chief Complaints: * L abs Assessment: * Assessment: 1. H epatitis C - B19.20 (Primary) Plan: * Treatment: * * Date:
[2025-09-12 11:25] LABS: INTERNATIONAL NORM RATIO 0.9 (0.9-1.1); Prothrombin Time 11.1 SEC (11.2-13.5)
--- OUTSIDE RECORDS SUMMARY | 2025-09-12 11:42 | XMS_ITS | Patient Health Record ---
Author Organization [facility] Address [address] [place] [address] Care Team Providers Care Medical Office Secretary Name Role Phone LAURY FENTON M.D. Primary Care Provider Arnel Telles Jr Allergies Allergen (clinical drug ingredient) Drug/Non Drug Allergy documented on EMR Reaction Allergy Type Onset Date Status Penicillin Unknown Drug Allergy Active Results Component Value Reference Range Flag Notes Complete Blood Count Auto Di ff Reviewed date:09/11/2025 03:53:07 PM Interpretation: Performing Lab:[facility], [address] [place] [phone] Notes/Report: White Blood Count 7.9 4.8-10.8 X10*3/uL [...] Auto 0.000 0.0-0.012 X10*3/uL N Liver Panel Reviewed date:09/11/2025 03:58:49 PM Interpretation: Performing Lab:[facility], [address] [place] [phone] Notes/Report: Bilirubin Total 0.5 0.0-1.0 mg/dL N Bilirubin Direct 0.3 0.0-0.5 mg/dL N Aspartate Amino Transferase 41 5-37 U/L H Alanine Aminotransferase 54 0-40 U/L H Total Protein 7.1 6.5-8.0 g/dL N Albumin Level 4.7 3.5-5.0 g/dL N Alkaline Phosphatase 85 39-117 U/L N IRON PROFILE Reviewed date:09/11/2025 03:59:01 PM Interpretation: Performing Lab:[facility], [address] [place] [phone] Notes/Report: Iron 194 45-160 mcg/dL H Total Iron Binding Capacity 305 228-428 mcg/dL N Percent Iron Saturation 64 15-50 % H Unsaturated Iron Binding 111 Ferritin Reviewed date:09/11/2025 03:59:01 PM Interpretation: Performing Lab:[facility], [address] [place] [phone] Notes/Report: Ferritin 223 20-250 ng/mL N Hemoglobin A1c Reviewed date:09/11/2025 03:59:01 PM Interpretation: Performing Lab:[facility], [address] [place] [phone] Notes/Report: Hemoglobin A1c % 5.2 <6.0 % [...] average glucose, using the formula of the [id number] Average Glucose study (ADAG), Diabetes Care, Vol.31,#8, 2007 Prothrombin Time INR (Not ye t reviewed by provider) Interpretation: Performing Lab:[facility], [address] [place] [phone] Notes/Report: Prothrombin Time 11.1 11.2-13.5 SEC L INTERNATIONAL NORM RATIO 0.9 0.9-1.1 N INTERNATIONAL NORMALIZED RATIO (INR) REFERENCE RANGES Reference Range For patients not on anticoagulant therapy: 0.9 - 1.1 INR ranges for oral anticoagulant therapy: For prevention and treatment of venous thrombosis and pulmonary embolism: 2.0 - 3.0 For acute myocardial infarction with aspirin therapy: 2.0 - 3.0 For acute myocardial infarction without aspirin therapy: 3.0 - 4.0 For patients with mechanical prosthetic heart valves: 2.5 - 3.5 Reason For Referral No Information Medications Medication [...] Info Options Details Miscellaneous: Marital status: Occupation: [employer] R Problems Problem Type SNOMED Code ICD Code Onset Dates Problem Status W/U Status Risk Notes Problem Hepatitis C (87315287) Hepatitis C (B19.20) Active confirmed Vital Signs Blood pressure diastolic 01 mm Hg 09/10/2025 Height 56 in 09/10/2025 Blood pressure systolic 001 mm Hg 09/10/2025 Weight 172.8 lbs 09/10/2025 BMI 38.74 kg/m2 09/10/2025 Encounters Encounter Location Date Provider Diagnosis [facility] [address] [place] [phone] 09/10/2025 Arnel Villaltaifford Hepatitis C B19.20 and Colon cancer screening Z12.11 [facility] [address] [place] [phone] 09/11/2025 Arnel Tamayo Jr Hepatitis C B19.20 [...] of colonoscopy and agrees to proceed. 09/10/2025 Hepatitis C (ICD-10 - B19.20) We [...] benefits of colonoscopy and agrees to proceed. 09/11/2025 Hepatitis C (ICD-10 - B19.20) Plan Of Treatment Pending Test Test Name Order Date LIVER PROFILE 09/10/2025 IRON + IBC (FE) 09/10/2025 FERRITIN 09/10/2025 CBC w/o DIFF 09/10/2025 PROTHROMBIN TIME (PT, INR) 09/10/2025 PROTHROMBIN TIME (PT, INR) 09/11/2025 HEMOCHROMATOSIS (C282Y) 09/11/2025 HEMOCHROMATOSIS (C282Y) 09/10/2025 HEPATITIS C VIRAL LOAD 09/11/2025 Prothrombin Time INR 09/12/2025 Liver Fibrosis Pnl 09/10/2025 Hepatitis C Genotype 09/11/2025 Future Test Test Name Order Date COLONOSCOPY 09/10/2025 Next Appt Details Provider Name:Arnel Chu Carlos Alberto brown Jr, 10/12/2025 08:20:00 AM, [address] [facility] , [place], [place], [id number], Insurance Providers Payer Name Payer Address Payer Phone Subscriber Number Group Number Insured Name Patient Relationship to Insured Coverage Start Date Coverage End Date [employer] [place] [address] [address] [place] [address] [id number] LANI CLEMENS Self - patient is the insured Medical (General) History Medical History History ICD Code hypertension
--- OUTSIDE RECORDS SUMMARY | 2025-09-12 11:43 | XMS_ITS | Patient Health Record ---
[facility] [place] Address [address] [place] [address] Care Team Providers Care Freelance Displayer Name Role Phone Kristian Andrade MD Primary Care Provider Jacob Page Unavailable [phone] Allergies Allergen (clinical drug ingredient) Drug/Non Drug [...] Notes Problem Plantar fasciitis of left foot ([id number]) Plantar fasciitis of left foot (M72.2) [...] Coverage End Date [employer] Benefits [address] [address] [place] [address] [id number] Randell Clemens Self - patient is the insured Medical (General) History Medical History History ICD Code High blood pressure Surgical History Surgery Date(Month/Year)
[2025-09-13 16:43] LABS: HCV Log PCR 6.52 Log IU/mL (NOT DETECTED); HepC Viral Load 3290000 IU/mL (NOT DETECTED)
== END 2025-09-12 10:28 | disposition home or self-care (01) ==
LOC: HO.LAB 10:27
PROVIDERS: PCP Student in an Organized Health Care Education/Training Program; Visit Provider Internal Medicine Gastroenterology
DX: B19.20 Unspecified viral hepatitis C without hepatic coma (principal)
CPT/HCPCS: 36415; 85610; 87522; 87902